=== PATIENT | female | born 1930 | race Caucasian/White ===

== ENCOUNTER 2017-02-06 03:55 | Inpatient (IN) | payer MEDICARE, OTHER ==
[2017-02-06] MEDS ORDERED: NORMAL SALINE 1000 ML 1,000 ML IV ONE (06:42)
[2017-02-06] MEDS ORDERED: PANTOPRAZOLE SODIUM 40 MG VIAL IV ONE (06:42)
--- NOTE | 2017-02-06 06:43 | ER Document Report ---
ED General - General Chief Complaint: Rectal Bleeding Stated Complaint: RECTAL BLEEDING Time Seen by Provider: 02/06/17 05:59 Mode of Arrival: Ambulatory Information source: Patient, Relative Notes: 86-year-old female DNR with no previous history of rectal bleeding presents with family with concerns of bleeding since yesterday, initially it was just a streak and then one clot, patient has started bleeding heavily since then. No history of hemorrhoids noted. TRAVEL OUTSIDE OF THE [place] IN LAST 30 DAYS: No - HPI Onset: Yesterday Onset/Duration: Persistent Quality of pain: No pain Severity: Moderate Pain Level: Denies Associated symptoms: None Exacerbated by: Denies Relieved by: Denies Similar symptoms previously: No Recently seen / treated by doctor: No - Related Data Allergies/Adverse Reactions: No Known Allergies Allergy (Unverified 08/09/11 12:34) Past Medical History - Social History Smoking Status: Never Smoker Cigarette use (# per day): No Chew tobacco use (# tins/day): No Smoking Education Provided: No Family History: Reviewed & Not Pertinent Patient has suicidal ideation: No Patient has homicidal ideation: No - Past Medical History Cardiac Medical History: Reports: Hx Hypercholesterolemia, Hx Hypertension Pulmonary Medical History: Denies: Hx Tuberculosis Neurological Medical History: Reports: Hx Cerebrovascular Accident - 3 YEARS AGO Endocrine Medical History: Reports: Hx Diabetes Mellitus Type 2 Renal/ Medical History: Denies: Hx Peritoneal Dialysis Musculoskeltal Medical History: Reports Hx Arthritis Psychiatric Medical History: Reports: Hx Depression - SINCE Past Surgical History: Denies: Hx Pacemaker - Immunizations Hx Diphtheria, Pertussis, Tetanus Vaccination: No Hx Pneumococcal Vaccination: 08/14/11 Review of Systems - Review of Systems Notes: REVIEW OF SYSTEMS: CONSTITUTIONAL : Denies fever, chills, or sweats. Denies recent illness. EENT: Denies eye, ear, throat, or mouth pain or symptoms. Denies nasal or sinus congestion or discharge. Denies throat, tongue, or mouth swelling or difficulty swallowing. CARDIOVASCULAR: Denies chest pain. Denies palpitations or racing or irregular heart beat. Denies ankle edema. RESPIRATORY: Denies cough, cold, or chest congestion. Denies shortness of breath, difficulty breathing, or wheezing. GASTROINTESTINAL: Admits to rectal bleeding GENITOURINARY: Denies difficulty urinating, painful urination, burning, frequency, blood in urine, or discharge. FEMALE GENITOURINARY: Denies vaginal bleeding, heavy or abnormal periods, irregular periods. Denies vaginal discharge or odor. MUSCULOSKELETAL: Denies back or neck pain or stiffness. Denies joint pain or swelling. SKIN: Denies rash, lesions or sores. HEMATOLOGIC : Denies easy bruising or bleeding. LYMPHATIC: Denies swollen, enlarged glands. NEUROLOGICAL: Denies confusion or altered mental status. Denies passing out or loss of consciousness. Denies dizziness or lightheadedness. Denies headache. Denies weakness or paralysis or loss of use of either side. Denies problems with gait or speech. Denies sensory loss, numbness, or tingling. Denies seizures. PSYCHIATRIC: Denies anxiety or stress. Denies depression, suicidal ideation, or homicidal ideation. ALL OTHER SYSTEMS REVIEWED AND NEGATIVE. PHYSICAL EXAMINATION: GENERAL: Well-appearing, well-nourished and in no acute distress. HEAD: Atraumatic, normocephalic. EYES: Pupils equal round and reactive to light, extraocular movements intact, conjunctiva are normal. ENT: Nares patent, oropharynx clear without exudates. Moist mucous membranes. NECK: Normal range of motion, supple without lymphadenopathy LUNGS: Breath sounds clear to auscultation bilaterally and equal. No wheezes rales or rhonchi. HEART: Regular rate and rhythm without murmurs ABDOMEN: Soft, nontender, nondistended abdomen. No guarding, no rebound. No masses appreciated. Large amount of dark blood clots per rectum Female : blood Was noted in the vaginal area however after cleaned extensively no active bleeding was noted Musculoskeletal: Normal range of motion, no pitting or edema. No cyanosis. NEUROLOGICAL: Cranial nerves grossly intact. Normal speech, normal gait. Normal sensory, motor exams PSYCH: Normal mood, normal affect. SKIN: Warm, Dry, normal turgor, no rashes or lesions noted. Dictation was performed using [employer] voice recognition software Physical Exam - Vital signs Vitals: Temp Pulse Resp BP Pulse Ox 98 F 73 18 168/94 H 96 02/06/17 04:24 02/06/17 04:24 02/06/17 04:24 02/06/17 04:24 02/06/17 04:24 Course - Re-evaluation Re-evalutation: 02/06/17 06:43 dark rectal bleeding noted, pt will be started on IV fluids protonix, pt is a DNR 02/06/17 08:45 I spoke with patient's primary care physician and will admit the patient to the hospital due to the rectal bleeding, - Vital Signs Vital signs: Temp Pulse Resp BP Pulse Ox 98 F 73 18 168/94 H 96 02/06/17 04:24 02/06/17 04:24 02/06/17 04:24 02/06/17 04:24 02/06/17 04:24 - Laboratory Result Diagrams: 02/06/17 06:35 02/06/17 06:35 Laboratory results interpreted by me: 02/06/17 02/06/17 06:35 06:35 Hgb 11.8 L MCHC 31.4 L RDW 16.0 H Lymphocytes % 11.3 L Eosinophils % 6.9 H Potassium 3.4 L BUN 27 H Est GFR (Non-Af Amer) 52 L Glucose 131 H Discharge - Discharge Clinical Impression: Rectal bleed Condition: Fair Disposition: ADMITTED INPATIENT Admitting Provider: Sonya Unit Admitted: JAMAR
[2017-02-06 06:45] LABS: ABSOLUTE BASOPHILS # (AUTO) 0.1 10^3/uL (0.0-0.2); ABSOLUTE EOSINOPHILS # (AUTO) 0.5 10^3/uL (0.0-0.6); ABSOLUTE LYMPHOCYTES (AUTO) 0.8 10^3/uL (0.5-4.7); ABSOLUTE MONOCYTES (AUTO) 0.7 10^3/uL (0.1-1.4); ABSOLUTE NEUT (AUTO) 5.3 10^3/uL (1.7-8.2); BASOPHILS % (AUTO) 0.8 % (0-2); EOSINOPHILS % (AUTO) 6.9 % (0-6); HEMATOCRIT 37.8 % (36.0-47.0); HEMOGLOBIN 11.8 g/dL (12.0-15.5); HGB HCT DIFFERENCE -2.4; LYMPHOCYTES % (AUTO) 11.3 % (13-45); MEAN CORPUSCULAR HEMOGLOBIN 27.2 pg (27.0-33.4); MEAN CORPUSCULAR HGB CONC 31.4 g/dL (32.0-36.0); MEAN CORPUSCULAR VOLUME 87 fl (80-97); MONOCYTES % (AUTO) 9.4 % (3-13); RED BLOOD COUNT 4.35 10^6/uL (3.72-5.28); SEGMENTED NEUTROPHILS % (AUTO) 71.6 % (42-78); WHITE BLOOD COUNT 7.4 10^3/uL (4.0-10.5)
[2017-02-06] MEDS ORDERED: PANTOPRAZOLE SODIUM 40 MG VIAL IV PRN ×2 (06:47→19:49)
[2017-02-06 06:56] LABS: ALANINE AMINOTRANSFERASE 27 U/L (9-52); ALBUMIN 3.6 g/dL (3.5-5.0); ALKALINE PHOSPHATASE 99 U/L (38-126); ANION GAP 10 (5-19); ASPARTATE AMINO TRANSFERASE 24 U/L (14-36); BILIRUBIN,DIRECT 0.3 mg/dL (0.0-0.4); BILIRUBIN,TOTAL 0.6 mg/dL (0.2-1.3); BLOOD UREA NITROGEN 27 mg/dL (7-20); CALCIUM 9.9 mg/dL (8.4-10.2); CARBON DIOXIDE 27 mmol/L (22-30); CHLORIDE 103 mmol/L (98-107); GLUCOSE 131 mg/dL (75-110); POTASSIUM 3.4 mmol/L (3.6-5.0); SODIUM 140.3 mmol/L (137-145); TOTAL PROTEIN 6.4 g/dL (6.3-8.2)
[2017-02-06] MEDS ORDERED: DEXTROSE 40% GEL 15 GM TUBE PO PRN ×2 (08:41)
[2017-02-06] MEDS ORDERED: GLUCAGON,HUMAN RECOMB 1 MG INJ SUBCUT PRN (08:41)
[2017-02-06] MEDS ORDERED: ONDANSETRON 4 MG TAB.RAPDIS PO PRN (08:41)
[2017-02-06] MEDS ORDERED: DEXTROSE 50%-WATER 25 GM/50 ML DISP.SYRIN IV PRN ×2 (08:41)
[2017-02-06 14:15] LABS: HEMATOCRIT 35.9 % (36.0-47.0); HEMOGLOBIN 11.4 g/dL (12.0-15.5); HGB HCT DIFFERENCE -1.7; MEAN CORPUSCULAR HEMOGLOBIN 27.1 pg (27.0-33.4); MEAN CORPUSCULAR HGB CONC 31.7 g/dL (32.0-36.0); MEAN CORPUSCULAR VOLUME 86 fl (80-97); RED BLOOD COUNT 4.19 10^6/uL (3.72-5.28); RED CELL DISTRIBUTION WIDTH 15.8 % (11.5-14.0); WHITE BLOOD COUNT 6.5 10^3/uL (4.0-10.5)
--- NOTE | 2017-02-06 14:17 | PDOC H&P ---
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 Past Medical History Cardiac Medical History: Reports: Atrial Fibrillation - coumadin till pontine hemorrhage, Hyperlipidema, Hypertension Pulmonary Medical History: Reports: None Denies: Tuberculosis EENT Medical History: Reports: Cataracts, Other - glaucoma Neurological Medical History: Reports: Hemorrhagic CVA, Other - multilinfarct dementia Endocrine Medical History: Reports: Diabetes Mellitus Type 2 Renal/ Medical History: Reports: Other - protein 300mgQd Malignancy Medical History: Reports: None Musculoskeltal Medical History: Reports: Arthritis, Other - osteoporosis Rhumeral fracture Skin Medical History: Reports: None Psychiatric Medical History: Reports: Dementia - multiinfarct, Depression - SINCE Traumatic Medical History: Reports: None Hematology: Reports: Anemia - iron & b12. Took iron [id number]. Infectious Medical History: Reports: None Past Surgical History Past Surgical History: Reports: Other - iridectomy Denies: Pacemaker Social History Information Source: Dr. Trivedi Lives with: Family Smoking Status: Never Smoker Frequency of Alcohol Use: None Hx Recreational Drug Use: No Hx Prescription Drug Abuse: No - Advance Directive Resuscitation Status: Do Not Resuscitate Family History Family History: Hypertension Parental Family History Reviewed: Yes Children Family History Reviewed: Yes Sibling(s) Family History Reviewed.: Yes Medication/Allergy Home Medications: Alendronate Sodium [Fosamax 70 mg Tablet] 1 tab PO Q7D 02/06/17 Aspirin [Aspirin 81 mg Chewable Tablet] 81 mg PO DAILY 02/06/17 Atorvastatin Calcium [Lipitor 20 mg Tablet] 20 mg PO QHS 02/06/17 Cyanocobalamin (Vitamin B-12) [Vitamin B-12 1000 Mcg Tablet] 1,000 mcg PO DAILY 02/06/17 Labetalol HCl [Trandate] 100 mg PO Q12 02/06/17 Latanoprost [Xalatan 0.005% Oph Soln 2.5 ml] 1 drop OU QHS 02/06/17 Pantoprazole Sodium [Protonix] 40 mg PO DAILY 02/06/17 Trazodone HCl [Desyrel] 150 mg PO QHS 02/06/17 Allergies/Adverse Reactions: No Known Allergies Allergy (Unverified 08/09/11 12:34) Review of Systems Constitutional: PRESENT: weight loss - 21# in 18m. ABSENT: fever(s), headache(s ) Nose, Mouth, and Throat: ABSENT: sore throat Cardiovascular: ABSENT: chest pain, dyspnea on exertion, orthropnea Respiratory: ABSENT: cough Gastrointestinal: PRESENT: constipation, hematochezia. ABSENT: abdominal pain, diarrhea, melena, vomiting Genitourinary: ABSENT: dysuria, hematuria Neurological: PRESENT: memory loss Physical Exam Vital Signs: Temp Pulse Resp BP Pulse Ox 98.4 F 66 18 194/73 H 100 02/06/17 11:58 02/06/17 11:58 02/06/17 11:58 02/06/17 11:58 02/06/17 10:49 Intake & Output 02/05/17 02/06/17 02/07/17 07:59 07:59 07:59 Output Total 4 Balance -4 Weight 100 lb 4.965 oz General appearance: PRESENT: no acute distress Mouth exam: PRESENT: moist Neck exam: ABSENT: lymphadenopathy, tenderness, thyromegaly, tracheal deviation Respiratory exam: PRESENT: clear to auscultation julisa Cardiovascular exam: PRESENT: irregular rhythm. ABSENT: diastolic murmur, systolic murmur GI/Abdominal exam: ABSENT: mass, organolmegaly, tenderness Neurological exam: PRESENT: oriented to situation Psychiatric exam: PRESENT: appropriate affect Skin exam: ABSENT: pallor Results Laboratory Results: 02/06/17 10:15 Blood Type O POSITIVE Antibody Screen NEGATIVE Abnormal - 24 hr 02/06/17 02/06/17 02/06/17 06:35 06:35 12:41 Hgb 11.8 L MCHC 31.4 L RDW 16.0 H Lymphocytes % 11.3 L Eosinophils % 6.9 H Potassium 3.4 L BUN 27 H Est GFR (Non-Af Amer) 52 L Glucose 131 H POC Glucose 115 H Assessment & Plan - Diagnosis (1) Rectal bleed Is this a current diagnosis for this admission?: YesPlan: follow cbc. Clear liquids. Consult surgery. Avoid colonoscopy if hct does not fall too much. - Time Time Spent: 30 to 50 Minutes Medications reviewed and adjusted accordingly: Yes Anticipated discharge: Home Within: Other - Inpatient Certification Medical Necessity: Need Close Monitoring Due to Risk of Patient Decompensation - could bleed to , Need For IV Fluids, Need For Continuous Telemetry Monitoring, Need for Surgery - possible, Risk of Complication if Not Cared For in Hospital - , Risk of Diagnosis Which Will Require Inpatient Eval/Care/ Monitoring - actively bleeding
[2017-02-06 20:35] LABS: HEMATOCRIT 33.7 % (36.0-47.0); HEMOGLOBIN 10.4 g/dL (12.0-15.5); HGB HCT DIFFERENCE -2.5; MEAN CORPUSCULAR HEMOGLOBIN 26.8 pg (27.0-33.4); MEAN CORPUSCULAR HGB CONC 30.7 g/dL (32.0-36.0); MEAN CORPUSCULAR VOLUME 87 fl (80-97); RED BLOOD COUNT 3.86 10^6/uL (3.72-5.28); WHITE BLOOD COUNT 7.1 10^3/uL (4.0-10.5)
--- NOTE | 2017-02-06 21:29 | CONSULTATION REPORT E ---
Consultation Report NAME: FAWAD SÁNCHEZ : 1930 AGE: 86Y DATE: 02/06/2017 333 A TO: SAMUEL GARCÍA M.D. FROM: JUDAH CASTLE M.D. Requesting Physician REASON FOR CONSULTATION: The patient with lower GI bleed. HISTORY: This is an 86-year-old female who was noted to have painless lower GI bleeding with clots early this morning. She was seen in the emergency room where hemoglobin was drawn and this was 11.8. Subsequent hemoglobin 6 hours later showed hemoglobin slightly decreased at 11.4. Her white count is normal and platelets is at 207,000. However, no coagulation studies were drawn yet and I told the nurse to get a set of coags at 12 midnight for her next CBC drawing. The patient has a history of pontine bleed in 2007, but then taken off the Coumadin. He has a history of atrial fibrillation and just takes baby aspirin once a day. PAST MEDICAL HISTORY: 1. Atrial fibrillation. 2. Hyperlipidemia. 3. Hypertension. 4. History of cataracts. REVIEW OF SYSTEMS: NEUROLOGIC EXAM: Hemorrhagic CVA and multiinfarct dementia. ENDOCRINE: Diabetes mellitus type 2. MALIGNANCY: None. MUSCULOSKELETAL: History of osteoporosis with right humeral fracture. SKIN: No issues. PSYCHIATRIC: History of multiinfarct dementia and depression since . HEMATOLOGY: Reports anemia and took iron and B12 from 2007 to 2016. SOCIAL HISTORY: Never smoked. No alcohol or drug use. FAMILY HISTORY: Noncontributory. HOME MEDICATIONS: 1. Fosamax. 2. Aspirin 81 mg. 3. Lipitor. 4. B12. 5. Trandate. 6. Xalatan. 7. Protonix. 8. Desyrel. ALLERGIES: No known. REVIEW OF SYSTEMS: CONSTITUTIONAL: A 21 pound weight loss in 18 months. HEENT: No sore throat. No visual or hearing problems. CARDIOVASCULAR: Absent chest pains. RESPIRATORY: No cough. GI: Constipation and hematochezia. GENITOURINARY: No dysuria. NEUROLOGIC: Memory loss. PHYSICAL EXAMINATION: VITAL SIGNS: Temperature 98.4, pulse 66, respirations 18 per minute, BP 194/73 and pulse oximetry 100%. GENERAL APPEARANCE: The patient is in no acute distress. HEENT: Neck is supple. No thyromegaly. LUNGS: Clear. HEART: Irregular rate and rhythm. GASTROINTESTINAL: No abdominal pains. No tenderness or organomegaly. NEUROLOGIC: Oriented to situation. PSYCHIATRIC: Appropriate affect. SKIN: Positive pallor. LABORATORY DATA: Hemoglobin 11.8, decreased to 11.4, white count has been normal. IMPRESSION: 1. Lower GI bleed, possibly due to diverticulosis since the patient has history of constipation. 2. History of CVA. 3. Atrial fibrillation. RECOMMENDATION: 1. Check coagulation and correct if abnormal. 2. Continue with resuscitation and if hemoglobin drops below 10, may need to be transfused. 3. If the bleeding becomes more significant with decrease in hemoglobin, a bleeding scan may be in order to see for the site of the bleeding. The patient apparently is a DNR so we have to talk with the family as far as how aggressive we should be. 4. will inform Dr Brown tomorrow for possible colonoscopy. DICTATING PHYSICIAN: SAMUEL GARCÍA M.D. [id number] PHY#: [id number] ID: [id number] JOB#: [id number] ACCT: [id number] cc:SAMUEL GARCÍA M.D. > MTDD
[2017-02-06 21:35] LABS: PROTHROMBIN TIME 13.6 SEC (11.4-15.4)
[2017-02-06 21:37] LABS: PARTIAL THROMBOPLASTIN TIME 60.9 SEC (23.5-35.8)
[2017-02-06] MEDS: LABETALOL HCL 200 MG TABLET PO SCH (21:43)
[2017-02-06] MEDS: TRAZODONE HCL 50 MG TABLET PO SCH (21:45)
[2017-02-06] MEDS: LATANOPROST 0.005% OPH SOLN 2.5 ML OU SCH (21:46)
[2017-02-06] MEDS: ATORVASTATIN CALCIUM 20 MG TABLET PO SCH (21:46)
[2017-02-06] MEDS ORDERED: (PENDING PHARMACY ID) (Trazodone Hcl [Desyrel] 150 MG) PO SCH (22:00)
[2017-02-07] MEDS ORDERED: ENALAPRILAT DIHYDRATE INJ/PF 1.25 MG/1 ML SDV IV PRN (00:17)
[2017-02-07] MEDS: ENALAPRILAT DIHYDRATE INJ/PF 1.25 MG/1 ML SDV IV PRN ×4 (00:33→17:55)
[2017-02-07 00:41] LABS: HEMATOCRIT 32.6 % (36.0-47.0); HEMOGLOBIN 10.3 g/dL (12.0-15.5); HGB HCT DIFFERENCE -1.7; MEAN CORPUSCULAR HEMOGLOBIN 27.3 pg (27.0-33.4); MEAN CORPUSCULAR HGB CONC 31.6 g/dL (32.0-36.0); MEAN CORPUSCULAR VOLUME 86 fl (80-97); RED BLOOD COUNT 3.78 10^6/uL (3.72-5.28); RED CELL DISTRIBUTION WIDTH 15.8 % (11.5-14.0)
[2017-02-07 00:58] LABS: PROTHROMBIN TIME 13.5 SEC (11.4-15.4)
[2017-02-07 00:59] LABS: PARTIAL THROMBOPLASTIN TIME 49.5 SEC (23.5-35.8)
[2017-02-07 06:31] LABS: HEMATOCRIT 29.2 % (36.0-47.0); HEMOGLOBIN 9.4 g/dL (12.0-15.5); MEAN CORPUSCULAR HEMOGLOBIN 27.4 pg (27.0-33.4); MEAN CORPUSCULAR HGB CONC 32.2 g/dL (32.0-36.0); MEAN CORPUSCULAR VOLUME 85 fl (80-97); RED BLOOD COUNT 3.43 10^6/uL (3.72-5.28); RED CELL DISTRIBUTION WIDTH 15.5 % (11.5-14.0); WHITE BLOOD COUNT 8.3 10^3/uL (4.0-10.5)
--- NOTE | 2017-02-07 09:52 | PDOC PROGRESS REPORT ---
Subjective Progress Note for:: 02/07/17 Subjective:: Patient had less bleeding overnight and no bloody bowel movements this morning Physical Exam Vital Signs: Temp Pulse Resp BP Pulse Ox 98.0 F 78 18 192/90 H 100 02/07/17 08:06 02/07/17 08:06 02/07/17 08:06 02/07/17 08:06 02/07/17 08:06 Intake & Output 02/06/17 02/07/17 02/08/17 06:59 06:59 06:59 Intake Total 695 Output Total 4 Balance 691 Weight 45.2 kg General appearance: PRESENT: no acute distress, other - Somewhat crumpled in her bed, unable to move her right arm right shoulder due to subacute fracture GI/Abdominal exam: PRESENT: other - No guarding, no peritoneal signs no organomegaly. Results Laboratory Results: 02/07/17 06:06 02/06/17 02/06/17 02/06/17 10:15 14:09 20:19 WBC 6.5 7.1 RBC 4.19 3.86 Hgb 11.4 L 10.4 L Hct 35.9 L 33.7 L MCV 86 87 MCH 27.1 26.8 L MCHC 31.7 L 30.7 L RDW 15.8 H 16.0 H Plt Count 207 206 Blood Type O POSITIVE Antibody Screen NEGATIVE 02/07/17 02/07/17 00:31 06:06 WBC 11.0 H 8.3 RBC 3.78 3.43 L Hgb 10.3 L 9.4 L Hct 32.6 L 29.2 L MCV 86 85 MCH 27.3 27.4 MCHC 31.6 L 32.2 RDW 15.8 H 15.5 H Plt Count 189 191 Blood Type Antibody Screen Assessment & Plan - Diagnosis (1) Rectal bleed Is this a current diagnosis for this admission?: YesPlan: Acute, with associated drop in hemoglobin however the patient has been fluid resuscitated. I spent a long time talking to the patient and her daughters. Patient has never had a colonoscopy that they are aware of. She knows of no history of gastrointestinal bleeding, peptic ulcer disease, etc. I explained to them that the most common cause of a GI bleed of this sort is diverticular or possibly AVM, but certainly without a colonoscopy, diagnosis cannot be confirmed. Given the patient's frail status, advanced age, multiple comorbidities, and DNR status, I recommended a conservative, [id number] approach, which the patient and her family are comfortable with at this moment. If the patient believes, then decisions will need to be made about appropriateness of transfusion therapy and further intervention. - Time Time Spent with patient: 15-24 minutes
[2017-02-07] MEDS: CYANOCOBALAMIN (VITAMIN B-12) 1,000 MCG TABLET PO SCH (10:04)
[2017-02-07] MEDS: LABETALOL HCL 200 MG TABLET PO SCH ×2 (10:05→22:45)
--- NOTE | 2017-02-07 10:23 | EKG REPORT ---
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
[2017-02-07 12:41] LABS: HEMATOCRIT 26.6 % (36.0-47.0); HEMOGLOBIN 8.4 g/dL (12.0-15.5); HGB HCT DIFFERENCE -1.4; MEAN CORPUSCULAR HEMOGLOBIN 27.1 pg (27.0-33.4); MEAN CORPUSCULAR HGB CONC 31.6 g/dL (32.0-36.0); MEAN CORPUSCULAR VOLUME 86 fl (80-97); RED CELL DISTRIBUTION WIDTH 15.4 % (11.5-14.0); WHITE BLOOD COUNT 6.6 10^3/uL (4.0-10.5)
--- NOTE | 2017-02-07 14:58 | PDOC PROGRESS REPORT ---
Subjective Progress Note for:: 02/07/17 Subjective:: reason for visit: f/u anemia, GIB hospital course: per Dr Hassan - "Patient complains of: since 2am new bright red then maroon painless rectal bleeding with clots. 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 Her H/H have slowly trended down, no susana bloody stools reported to me by staff or family since her admission. she remains hemodynamically stable and very pleasantly demented to the extreme. ROS: unobtainable from the patient due to profound dementia Physical Exam Vital Signs: Temp Pulse Resp BP Pulse Ox 98.0 F 75 18 170/80 H 100 02/07/17 12:36 02/07/17 12:36 02/07/17 12:36 02/07/17 12:36 02/07/17 12:36 Intake & Output 02/06/17 02/07/17 02/08/17 06:59 06:59 06:59 Intake Total 695 Output Total 4 Balance 691 Weight 45.2 kg General appearance: PRESENT: no acute distress, thin, well-developed Head exam: PRESENT: atraumatic, normocephalic Eye exam: ABSENT: conjunctival injection, scleral icterus Mouth exam: PRESENT: moist, neck supple Respiratory exam: PRESENT: clear to auscultation julisa. ABSENT: accessory muscle use Cardiovascular exam: PRESENT: irregular rhythm. ABSENT: systolic murmur, tachycardia Pulses: PRESENT: normal radial pulses, normal dorsalis pedis pul Vascular exam: ABSENT: normal capillary refill - diminished GI/Abdominal exam: PRESENT: normal bowel sounds, soft. ABSENT: tenderness Rectal exam: PRESENT: deferred Extremities exam: ABSENT: calf tenderness, pedal edema Neurological exam: PRESENT: alert, awake, oriented to person - only, motor sensory deficit - Right hemiplegia Psychiatric exam: PRESENT: appropriate affect, normal mood. ABSENT: agitated, anxious Focused psych exam: ABSENT: paranoid, psychomotor agitation Skin exam: PRESENT: dry, warm Results Laboratory Results: 02/07/17 12:07 02/06/17 02/07/17 02/07/17 20:19 00:31 06:06 WBC 7.1 11.0 H 8.3 RBC 3.86 3.78 3.43 L Hgb 10.4 L 10.3 L 9.4 L Hct 33.7 L 32.6 L 29.2 L MCV 87 86 85 MCH 26.8 L 27.3 27.4 MCHC 30.7 L 31.6 L 32.2 RDW 16.0 H 15.8 H 15.5 H Plt Count 206 189 191 02/07/17 12:07 WBC 6.6 RBC 3.10 L Hgb 8.4 L Hct 26.6 L MCV 86 MCH 27.1 MCHC 31.6 L RDW 15.4 H Plt Count 200 Assessment & Plan - Diagnosis (1) Rectal bleed Is this a current diagnosis for this admission?: YesPlan: worse, still losing blood but at slower pace and not hemodynamically significant at this time. continue expectant management (2) Acute blood loss anemia Is this a current diagnosis for this admission?: YesPlan: worse with continued slow blood loss not affecting her hemodynamics; likely diverticular or hemorrhoidal bleed. continue expectant management, hold antiplt or anticoagulation, trend H/H. dr brown available for endoscopy if condition rapidly deteriorates. family ( daughter) agreeable. (3) Dementia Qualifiers: Dementia type: unspecified type Dementia behavioral disturbance: without behavioral disturbance Qualified Code(s): F03.90 - Unspecified dementia without behavioral disturbance Is this a current diagnosis for this admission?: YesPlan: stable; continue home regimen, family or their EDUCATIONAL RESOURCE COORDINATOR available (4) ICH (intracerebral hemorrhage) Qualifiers: Intracerebral hemorrhage etiology: nontraumatic Cerebral hemorrhage location: unspecified cerebral location Laterality: unspecified laterality Qualified Code(s): I61.9 - Nontraumatic intracerebral hemorrhage, unspecified Is this a current diagnosis for this admission?: YesPlan: old and stable; no anticoagulation for life (5) Afib Qualifiers: Atrial fibrillation type: chronic Qualified Code(s): I48.2 - Chronic atrial fibrillation Is this a current diagnosis for this admission?: YesPlan: worse, rate poorly controlled this morning. resume beta juliet and monitor (6) Accelerated essential hypertension Is this a current diagnosis for this admission?: YesPlan: worse; resume home regimen (7) Do not resuscitate Is this a current diagnosis for this admission?: Yes - Time Time Spent with patient: 25-34 minutes Medications reviewed and adjusted accordingly: Yes
[2017-02-07 18:23] LABS: HEMATOCRIT 24.3 % (36.0-47.0); HGB HCT DIFFERENCE -1.2; MEAN CORPUSCULAR HEMOGLOBIN 27.2 pg (27.0-33.4); MEAN CORPUSCULAR HGB CONC 31.5 g/dL (32.0-36.0); MEAN CORPUSCULAR VOLUME 87 fl (80-97); RED BLOOD COUNT 2.81 10^6/uL (3.72-5.28); RED CELL DISTRIBUTION WIDTH 15.5 % (11.5-14.0)
[2017-02-07 18:32] LABS: HEMOGLOBIN 7.7 g/dL (12.0-15.5)
[2017-02-07] MEDS ORDERED: NORMAL SALINE 250 ML IV PRN ×2 (18:54)
[2017-02-07] MEDS: NORMAL SALINE 1000 ML 1,000 ML IV PRN (22:43)
[2017-02-07] MEDS: LATANOPROST 0.005% OPH SOLN 2.5 ML OU SCH (22:45)
[2017-02-07] MEDS: ATORVASTATIN CALCIUM 20 MG TABLET PO SCH (22:45)
[2017-02-07] MEDS: TRAZODONE HCL 50 MG TABLET PO SCH (22:45)
[2017-02-08 00:39] LABS: HEMATOCRIT 25.9 % (36.0-47.0); HEMOGLOBIN 8.3 g/dL (12.0-15.5); MEAN CORPUSCULAR HEMOGLOBIN 27.4 pg (27.0-33.4); MEAN CORPUSCULAR HGB CONC 31.9 g/dL (32.0-36.0); MEAN CORPUSCULAR VOLUME 86 fl (80-97); RED BLOOD COUNT 3.02 10^6/uL (3.72-5.28); RED CELL DISTRIBUTION WIDTH 15.6 % (11.5-14.0); WHITE BLOOD COUNT 6.4 10^3/uL (4.0-10.5)
[2017-02-08] MEDS: ENALAPRILAT DIHYDRATE INJ/PF 1.25 MG/1 ML SDV IV PRN ×4 (01:32→17:27)
[2017-02-08 09:14] LABS: MEAN CORPUSCULAR VOLUME 86 fl (80-97)
[2017-02-08 09:18] LABS: ABSOLUTE BASOPHILS # (AUTO) 0.1 10^3/uL (0.0-0.2); ABSOLUTE EOSINOPHILS # (AUTO) 0.7 10^3/uL (0.0-0.6); ABSOLUTE LYMPHOCYTES (AUTO) 1.1 10^3/uL (0.5-4.7); ABSOLUTE MONOCYTES (AUTO) 0.6 10^3/uL (0.1-1.4); ABSOLUTE NEUT (AUTO) 4.1 10^3/uL (1.7-8.2); BASOPHILS % (AUTO) 0.9 % (0-2); EOSINOPHILS % (AUTO) 10.3 % (0-6); HEMOGLOBIN 11.1 g/dL (12.0-15.5); HGB HCT DIFFERENCE -1.7; LYMPHOCYTES % (AUTO) 16.9 % (13-45); MEAN CORPUSCULAR HEMOGLOBIN 27.1 pg (27.0-33.4); MEAN CORPUSCULAR HGB CONC 31.7 g/dL (32.0-36.0); MONOCYTES % (AUTO) 9.7 % (3-13); RED BLOOD COUNT 4.09 10^6/uL (3.72-5.28); RED CELL DISTRIBUTION WIDTH 17.2 % (11.5-14.0); SEGMENTED NEUTROPHILS % (AUTO) 62.2 % (42-78); WHITE BLOOD COUNT 6.7 10^3/uL (4.0-10.5)
[2017-02-08] MEDS: LABETALOL HCL 200 MG TABLET PO SCH ×2 (09:49→23:02)
[2017-02-08] MEDS: CYANOCOBALAMIN (VITAMIN B-12) 1,000 MCG TABLET PO SCH (09:50)
[2017-02-08] MEDS: NORMAL SALINE 100 ML with PANTOPRAZOLE SODIUM 80 MG IV PRN ×4 (09:50→21:52)
--- NOTE | 2017-02-08 15:56 | PDOC PROGRESS REPORT ---
Subjective Progress Note for:: 02/08/17 Subjective:: The patient is an 86-year-old female who presented to the emergency room with bright red blood per rectum with clots. She has known worsening dementia at baseline. She has a history of an acute hemorrhagic CVA in 2007. She was admitted to the hospital and has been followed by general surgery who is elected to pursue a conservative approach. Her H&H has trended downward but she has had no susana bloody stools since the time of admission. She has remained hemodynamically stable. Yesterday she received 2 units of packed red blood cells with the appropriate response to her hemoglobin. Today when I saw her she had a caregiver at the bedside. At this point she appears to be at her cognitive baseline. The patient's daughter is not present at the bedside however the caregiver states that she understands the state of her worsening dementia and would like to talk to me later on in the day. Review of systems could not be obtained from the patient herself due to her underlying dementia. Physical Exam Vital Signs: Temp Pulse Resp BP Pulse Ox 98.4 F 76 20 147/79 H 82 L 02/08/17 12:59 02/08/17 14:00 02/08/17 12:59 02/08/17 12:59 02/08/17 12:59 Intake & Output 02/07/17 02/08/17 02/09/17 06:59 06:59 06:59 Intake Total 695 2363 200 Output Total 4 Balance 691 2363 200 Weight 45.2 kg 47.8 kg General appearance: PRESENT: no acute distress, cooperative Exam: She is somewhat cachectic. She is alert and interactive but not oriented. Head exam: PRESENT: atraumatic, normocephalic Mouth exam: PRESENT: moist Respiratory exam: PRESENT: clear to auscultation julisa, rhonchi - She has some scattered rhonchi bilaterally. Otherwise her lungs sound fairly clear Cardiovascular exam: PRESENT: irregular rhythm. ABSENT: diastolic murmur, gallop, rubs, systolic murmur GI/Abdominal exam: PRESENT: normal bowel sounds, soft. ABSENT: tenderness Extremities exam: ABSENT: calf tenderness, tenderness Neurological exam: PRESENT: alert, awake. ABSENT: oriented to person, oriented to place, oriented to time, oriented to situation Psychiatric exam: PRESENT: appropriate affect Skin exam: PRESENT: dry, warm Results Laboratory Results: 02/08/17 08:22 02/06/17 02/07/17 02/08/17 10:15 17:55 00:29 WBC 6.0 6.4 RBC 2.81 L 3.02 L Hgb 7.7 L 8.3 L Hct 24.3 L 25.9 L MCV 87 86 MCH 27.2 27.4 MCHC 31.5 L 31.9 L RDW 15.5 H 15.6 H Plt Count 161 176 Seg Neutrophils % Lymphocytes % Monocytes % Eosinophils % Basophils % Absolute Neutrophils Absolute Lymphocytes Absolute Monocytes Absolute Eosinophils Absolute Basophils Blood Type O POSITIVE Antibody Screen NEGATIVE 02/08/17 08:22 WBC 6.7 RBC 4.09 Hgb 11.1 L D Hct 35.0 L MCV 86 MCH 27.1 MCHC 31.7 L RDW 17.2 H Plt Count 169 Seg Neutrophils % 62.2 Lymphocytes % 16.9 Monocytes % 9.7 Eosinophils % 10.3 H Basophils % 0.9 Absolute Neutrophils 4.1 Absolute Lymphocytes 1.1 Absolute Monocytes 0.6 Absolute Eosinophils 0.7 H Absolute Basophils 0.1 Blood Type Antibody Screen Assessment & Plan - Diagnosis (1) Acute blood loss anemia Is this a current diagnosis for this admission?: YesPlan: She likely has slow GI losses due to either hemorrhoids or diverticular bleed. At this point no aggressive workup. She has been transfused 2 units of packed red blood cells with the appropriate response to her hemoglobin. She also likely has anemia of chronic disease. (2) Accelerated essential hypertension Is this a current diagnosis for this admission?: YesPlan: Improved (3) Afib Qualifiers: Atrial fibrillation type: chronic Qualified Code(s): I48.2 - Chronic atrial fibrillation Is this a current diagnosis for this admission?: YesPlan: Currently rate controlled. Continue current regimen (4) Dementia Qualifiers: Dementia type: unspecified type Dementia behavioral disturbance: without behavioral disturbance Qualified Code(s): F03.90 - Unspecified dementia without behavioral disturbance Is this a current diagnosis for this admission?: YesPlan: The patient has fairly advanced dementia at baseline. I plan to talk to the daughter regarding goals of care prior to her leaving the hospital. (5) ICH (intracerebral hemorrhage) Qualifiers: Intracerebral hemorrhage etiology: nontraumatic Cerebral hemorrhage location: unspecified cerebral location Laterality: unspecified laterality Qualified Code(s): I61.9 - Nontraumatic intracerebral hemorrhage, unspecified Is this a current diagnosis for this admission?: YesPlan: History of bleed in the past. She is not a candidate for any sort of anticoagulation or aspirin therapy. (6) Rectal bleed Is this a current diagnosis for this admission?: Yes - Time Time Spent with patient: 15-24 minutes
[2017-02-08] MEDS: NORMAL SALINE 1000 ML 1,000 ML IV PRN (18:29)
[2017-02-08] MEDS: TRAZODONE HCL 50 MG TABLET PO SCH (23:01)
[2017-02-08] MEDS: ATORVASTATIN CALCIUM 20 MG TABLET PO SCH (23:02)
[2017-02-08] MEDS: LATANOPROST 0.005% OPH SOLN 2.5 ML OU SCH (23:05)
[2017-02-09] MEDS: ENALAPRILAT DIHYDRATE INJ/PF 1.25 MG/1 ML SDV IV PRN ×4 (00:31→17:58)
[2017-02-09 06:09] LABS: ANION GAP 11 (5-19); BLOOD UREA NITROGEN 22 mg/dL (7-20); CALCIUM 8.6 mg/dL (8.4-10.2); CARBON DIOXIDE 26 mmol/L (22-30); CHLORIDE 110 mmol/L (98-107); CREATININE RESULT 0.76 mg/dL (0.52-1.25); GLUCOSE 112 mg/dL (75-110); MAGNESIUM 1.4 mg/dL (1.6-2.3); SODIUM 146.9 mmol/L (137-145)
[2017-02-09] MEDS: NORMAL SALINE 1000 ML 1,000 ML IV PRN (06:13)
[2017-02-09] MEDS ORDERED: HYDRALAZINE HCL INJ/PF 20 MG/1 ML SDV IV PRN (07:44)
[2017-02-09] MEDS: LABETALOL HCL 200 MG TABLET PO SCH ×2 (09:57→21:03)
[2017-02-09] MEDS: NORMAL SALINE 100 ML with PANTOPRAZOLE SODIUM 80 MG IV PRN ×4 (09:57→21:04)
[2017-02-09] MEDS: CYANOCOBALAMIN (VITAMIN B-12) 1,000 MCG TABLET PO SCH (09:58)
[2017-02-09] MEDS: HYDRALAZINE HCL 25 MG TABLET PO SCH ×2 (14:53→21:04)
--- NOTE | 2017-02-09 15:26 | PDOC PROGRESS REPORT ---
Subjective Progress Note for:: 02/09/17 Subjective:: It was reported by the nursing staff that the patient had some mild bleeding overnight. This was more just when she had a bowel movement and they wiped her there was some blood noted on tissue paper. Patient's daughter was at the bedside. I spent quite some time discussing goals of care with her all of her questions were answered. This point were going to keep her in the hospital for 1 additional day to make sure her hemoglobin stays stable. We are going to advance her to a regular low residue diet. We will can get physical therapy to see her today with tentative discharge planned for tomorrow. She does have excellent [id number] care at home. Review of systems could not be obtained from the patient herself due to her underlying advanced dementia. Physical Exam Vital Signs: Temp Pulse Resp BP Pulse Ox 97.5 F 52 L 18 141/57 H 99 02/09/17 11:48 02/09/17 11:48 02/09/17 11:48 02/09/17 08:24 02/09/17 11:48 Intake & Output 02/08/17 02/09/17 02/10/17 06:59 06:59 06:59 Intake Total 2363 3001 354 Balance 2363 3001 354 Weight 47.8 kg 47.6 kg General appearance: PRESENT: no acute distress, cooperative, thin Head exam: PRESENT: atraumatic, normocephalic Mouth exam: PRESENT: moist Respiratory exam: PRESENT: clear to auscultation julisa. ABSENT: accessory muscle use, chest wall tenderness, rales, rhonchi, wheezes Cardiovascular exam: PRESENT: irregular rhythm, +S1, +S2. ABSENT: tachycardia GI/Abdominal exam: PRESENT: normal bowel sounds, soft. ABSENT: tenderness Extremities exam: ABSENT: calf tenderness, clubbing, pedal edema Neurological exam: PRESENT: alert, awake. ABSENT: oriented to person, oriented to place, oriented to time, oriented to situation Psychiatric exam: PRESENT: appropriate affect Skin exam: PRESENT: dry, warm Results Laboratory Results: 02/08/17 08:22 02/09/17 05:32 02/09/17 05:32 Sodium 146.9 H Potassium 3.0 L* Chloride 110 H Carbon Dioxide 26 Anion Gap 11 BUN 22 H Creatinine 0.76 Est GFR ( Amer) > 60 Est GFR (Non-Af Amer) > 60 Glucose 112 H Calcium 8.6 Magnesium 1.4 L Assessment & Plan - Diagnosis (1) Acute blood loss anemia Is this a current diagnosis for this admission?: YesPlan: At this point I plan to check a CBC in the morning. Hopefully her hemoglobin will not it drifted down to 4. If it is stable tomorrow she will likely be discharged home. (2) Accelerated essential hypertension Is this a current diagnosis for this admission?: YesPlan: Resolved. Her blood pressure is improved. (3) Afib Qualifiers: Atrial fibrillation type: chronic Qualified Code(s): I48.2 - Chronic atrial fibrillation Is this a current diagnosis for this admission?: YesPlan: Currently rate controlled. She is not a candidate for anticoagulation. She has a history of hemorrhagic CVA as well as rectal bleeding. (4) Dementia Qualifiers: Dementia type: unspecified type Dementia behavioral disturbance: without behavioral disturbance Qualified Code(s): F03.90 - Unspecified dementia without behavioral disturbance Is this a current diagnosis for this admission?: YesPlan: The patient has fairly advanced dementia at baseline. However according to the daughter she is her usual self. They are taking excellent care of her at home and have [id number]-[id number] help. We did discuss the natural course of dementia and all of her questions were answered. (5) ICH (intracerebral hemorrhage) Qualifiers: Intracerebral hemorrhage etiology: nontraumatic Cerebral hemorrhage location: unspecified cerebral location Laterality: unspecified laterality Qualified Code(s): I61.9 - Nontraumatic intracerebral hemorrhage, unspecified Is this a current diagnosis for this admission?: YesPlan: History of bleed in the past. She is not a candidate for any sort of anticoagulation or aspirin therapy. (6) Rectal bleed Is this a current diagnosis for this admission?: Yes - Time Time Spent with patient: 25-34 minutes Medications reviewed and adjusted accordingly: Yes Anticipated discharge: Home Disposition: Inpatient hospitalization remains necessary. I would like to check her hemoglobin tomorrow morning. If this is stable she can likely be discharged home.
[2017-02-09] MEDS: TRAZODONE HCL 50 MG TABLET PO SCH (21:03)
[2017-02-09] MEDS: ATORVASTATIN CALCIUM 20 MG TABLET PO SCH (21:03)
[2017-02-09] MEDS: LATANOPROST 0.005% OPH SOLN 2.5 ML OU SCH (21:04)
[2017-02-09] MEDS: POTASSIUM CHLORIDE 20 MEQ/15 ML UDCUP PO SCH (21:04)
[2017-02-10] MEDS: NORMAL SALINE 1000 ML 1,000 ML IV PRN ×2 (00:38→11:11)
[2017-02-10] MEDS: ENALAPRILAT DIHYDRATE INJ/PF 1.25 MG/1 ML SDV IV PRN ×4 (01:43→17:17)
[2017-02-10] MEDS: HYDRALAZINE HCL 25 MG TABLET PO SCH ×3 (05:02→22:01)
[2017-02-10 06:20] LABS: ABSOLUTE BASOPHILS # (AUTO) 0.1 10^3/uL (0.0-0.2); ABSOLUTE EOSINOPHILS # (AUTO) 0.7 10^3/uL (0.0-0.6); ABSOLUTE MONOCYTES (AUTO) 0.9 10^3/uL (0.1-1.4); ABSOLUTE NEUT (AUTO) 5.3 10^3/uL (1.7-8.2); BASOPHILS % (AUTO) 0.8 % (0-2); EOSINOPHILS % (AUTO) 8.8 % (0-6); LYMPHOCYTES % (AUTO) 12.2 % (13-45); MEAN CORPUSCULAR HEMOGLOBIN 27.2 pg (27.0-33.4); MEAN CORPUSCULAR HGB CONC 31.5 g/dL (32.0-36.0); MEAN CORPUSCULAR VOLUME 86 fl (80-97); MONOCYTES % (AUTO) 11.2 % (3-13); RED BLOOD COUNT 4.05 10^6/uL (3.72-5.28); RED CELL DISTRIBUTION WIDTH 17.3 % (11.5-14.0)
[2017-02-10 06:29] LABS: ANION GAP 11 (5-19); BLOOD UREA NITROGEN 17 mg/dL (7-20); CALCIUM 7.9 mg/dL (8.4-10.2); CARBON DIOXIDE 22 mmol/L (22-30); CHLORIDE 113 mmol/L (98-107); CREATININE RESULT 0.71 mg/dL (0.52-1.25); GLUCOSE 92 mg/dL (75-110); MAGNESIUM 1.3 mg/dL (1.6-2.3); POTASSIUM 3.2 mmol/L (3.6-5.0); SODIUM 145.7 mmol/L (137-145)
[2017-02-10] MEDS: NORMAL SALINE 100 ML with PANTOPRAZOLE SODIUM 80 MG IV PRN ×2 (07:52)
[2017-02-10] MEDS: LABETALOL HCL 200 MG TABLET PO SCH ×2 (09:52→22:01)
[2017-02-10] MEDS: POTASSIUM CHLORIDE 20 MEQ/15 ML UDCUP PO SCH (09:52)
[2017-02-10] MEDS: CYANOCOBALAMIN (VITAMIN B-12) 1,000 MCG TABLET PO SCH (09:52)
--- NOTE | 2017-02-10 12:42 | PDOC PROGRESS REPORT ---
Subjective Progress Note for:: 02/10/17 Subjective:: The patient is resting in her bed. She is awake alert and pleasantly confused. Her review of systems could not be obtained. The nursing staff reported that the patient had a bowel movement that had about 20 cc of bright red blood in it. I discussed this with the patient's daughter at the bedside. We are going to monitor here in the hospital overnight. We are going to stop her IV fluids and IV Protonix. Will see if she can maintain her hydration. They are in agreement with this plan. We are tentatively planning discharge for tomorrow if her hemoglobin remained stable. Physical Exam Vital Signs: Temp Pulse Resp BP Pulse Ox 98.0 F 78 19 116/90 H 100 02/10/17 11:23 02/10/17 11:23 02/10/17 11:23 02/10/17 11:23 02/10/17 11:23 Intake & Output 02/09/17 02/10/17 02/11/17 06:59 06:59 06:59 Intake Total 3001 3194 50 Balance 3001 3194 50 Weight 47.6 kg 47 kg General appearance: PRESENT: no acute distress, thin Head exam: PRESENT: atraumatic, normocephalic Mouth exam: PRESENT: moist, tongue midline Respiratory exam: PRESENT: clear to auscultation julisa. ABSENT: rales, rhonchi, wheezes Cardiovascular exam: PRESENT: irregular rhythm. ABSENT: diastolic murmur, rubs , systolic murmur GI/Abdominal exam: PRESENT: normal bowel sounds, soft. ABSENT: distended, guarding, mass, organolmegaly, rebound, tenderness Rectal exam: PRESENT: bloody stool - Noted by nursing staff Extremities exam: PRESENT: full ROM. ABSENT: calf tenderness, clubbing, pedal edema Neurological exam: PRESENT: alert - we are on the same page, awake, motor sensory deficit Psychiatric exam: PRESENT: appropriate affect Skin exam: PRESENT: dry, intact, warm. ABSENT: cyanosis, rash Results Laboratory Results: 02/10/17 05:41 02/10/17 05:41 02/10/17 02/10/17 05:41 05:41 WBC 8.0 RBC 4.05 Hgb 11.0 L Hct 35.0 L MCV 86 MCH 27.2 MCHC 31.5 L RDW 17.3 H Plt Count 156 Seg Neutrophils % 67.0 Lymphocytes % 12.2 L Monocytes % 11.2 Eosinophils % 8.8 H Basophils % 0.8 Absolute Neutrophils 5.3 Absolute Lymphocytes 1.0 Absolute Monocytes 0.9 Absolute Eosinophils 0.7 H Absolute Basophils 0.1 Sodium 145.7 H Potassium 3.2 L Chloride 113 H Carbon Dioxide 22 Anion Gap 11 BUN 17 Creatinine 0.71 Est GFR ( Amer) > 60 Est GFR (Non-Af Amer) > 60 Glucose 92 Calcium 7.9 L Magnesium 1.3 L Assessment & Plan - Diagnosis (1) Acute blood loss anemia Is this a current diagnosis for this admission?: YesPlan: So far her hemoglobin is stable. She has received 2 units of packed red blood cells. This is likely due to a diverticular bleed. However family is deferred GI workup at this point. She could also have some internal hemorrhoids. (2) Accelerated essential hypertension Is this a current diagnosis for this admission?: YesPlan: Resolved. Her blood pressure is improved. (3) Afib Qualifiers: Atrial fibrillation type: chronic Qualified Code(s): I48.2 - Chronic atrial fibrillation Is this a current diagnosis for this admission?: YesPlan: Currently rate controlled. She is not a candidate for anticoagulation. She has a history of hemorrhagic CVA as well as rectal bleeding. (4) Dementia Qualifiers: Dementia type: unspecified type Dementia behavioral disturbance: without behavioral disturbance Qualified Code(s): F03.90 - Unspecified dementia without behavioral disturbance Is this a current diagnosis for this admission?: YesPlan: The patient has fairly advanced dementia at baseline. However according to the daughter she is her usual self. (5) ICH (intracerebral hemorrhage) Qualifiers: Intracerebral hemorrhage etiology: nontraumatic Cerebral hemorrhage location: unspecified cerebral location Laterality: unspecified laterality Qualified Code(s): I61.9 - Nontraumatic intracerebral hemorrhage, unspecified Is this a current diagnosis for this admission?: Yes (6) Rectal bleed Is this a current diagnosis for this admission?: YesPlan: Likely diverticular bleed although I cannot rule out internal hemorrhoids. The daughter has decided not to pursue workup. Unfortunately she continues to have some bleeding. We will monitor her overnight - Time Time Spent with patient: 25-34 minutes Disposition: Going to watch the patient in the hospital overnight to make sure her hemoglobin stays stable. We are going to get rid of her parenteral therapy and make sure she can maintain her hydration. Hopefully she can be discharged home tomorrow.
[2017-02-10] MEDS ORDERED: POTASSIUM CHLORIDE 10 MEQ TABLET.SA PO ONE (13:15)
[2017-02-10] MEDS: TRAZODONE HCL 50 MG TABLET PO SCH (22:01)
[2017-02-10] MEDS: ATORVASTATIN CALCIUM 20 MG TABLET PO SCH (22:01)
[2017-02-10] MEDS: LATANOPROST 0.005% OPH SOLN 2.5 ML OU SCH (22:01)
[2017-02-11] MEDS: ENALAPRILAT DIHYDRATE INJ/PF 1.25 MG/1 ML SDV IV PRN ×4 (00:01→18:32)
[2017-02-11] MEDS: HYDRALAZINE HCL 25 MG TABLET PO SCH ×3 (05:29→21:17)
[2017-02-11] MEDS: LANSOPRAZOLE 30 MG TAB.RAP.DR PO SCH (05:29)
[2017-02-11 08:16] LABS: ABSOLUTE BASOPHILS # (AUTO) 0.1 10^3/uL (0.0-0.2); ABSOLUTE EOSINOPHILS # (AUTO) 0.2 10^3/uL (0.0-0.6); ABSOLUTE LYMPHOCYTES (AUTO) 0.9 10^3/uL (0.5-4.7); ABSOLUTE MONOCYTES (AUTO) 0.9 10^3/uL (0.1-1.4); ABSOLUTE NEUT (AUTO) 8.7 10^3/uL (1.7-8.2); BASOPHILS % (AUTO) 0.7 % (0-2); EOSINOPHILS % (AUTO) 1.6 % (0-6); HEMATOCRIT 35.4 % (36.0-47.0); HEMOGLOBIN 11.3 g/dL (12.0-15.5); HGB HCT DIFFERENCE -1.5; LYMPHOCYTES % (AUTO) 8.2 % (13-45); MEAN CORPUSCULAR HEMOGLOBIN 27.5 pg (27.0-33.4); MEAN CORPUSCULAR VOLUME 86 fl (80-97); MONOCYTES % (AUTO) 8.4 % (3-13); RED BLOOD COUNT 4.12 10^6/uL (3.72-5.28); RED CELL DISTRIBUTION WIDTH 17.2 % (11.5-14.0); SEGMENTED NEUTROPHILS % (AUTO) 81.1 % (42-78); WHITE BLOOD COUNT 10.8 10^3/uL (4.0-10.5)
[2017-02-11 08:29] LABS: ANION GAP 8 (5-19); BLOOD UREA NITROGEN 16 mg/dL (7-20); CALCIUM 8.8 mg/dL (8.4-10.2); CARBON DIOXIDE 24 mmol/L (22-30); CHLORIDE 110 mmol/L (98-107); GLUCOSE 114 mg/dL (75-110); MAGNESIUM 1.3 mg/dL (1.6-2.3); POTASSIUM 3.8 mmol/L (3.6-5.0); SODIUM 142.2 mmol/L (137-145)
[2017-02-11] MEDS: LABETALOL HCL 200 MG TABLET PO SCH ×2 (10:18→21:16)
[2017-02-11] MEDS: CYANOCOBALAMIN (VITAMIN B-12) 1,000 MCG TABLET PO SCH (10:19)
[2017-02-11] MEDS ORDERED: MAGNESIUM SULFATE/D5W 100 ML IV ONE (11:16)
--- NOTE | 2017-02-11 14:26 | RADIOLOGY REPORT (SQ) ---
EXAM DESCRIPTION: CHEST SINGLE VIEW COMPLETED DATE/TIME: 02/11/2017 1:54 pm REASON FOR STUDY: leukocytosis, tacht, ? aspiration COMPARISON: AP chest 05/18/2008 EXAM PARAMETERS: NUMBER OF VIEWS: One view. TECHNIQUE: Single frontal radiographic view of the chest acquired. RADIATION DOSE: NA LIMITATIONS: None. FINDINGS: LUNGS AND PLEURA: Left retrocardiac airspace disease atelectasis versus pneumonia. Right lung clear. No gross pleural effusions or pneumothorax. MEDIASTINUM AND HILAR STRUCTURES: No masses. Contour normal. HEART AND VASCULAR STRUCTURES: Massive cardiomegaly, increased since 2007 BONES: Osteoporotic, old healed right humeral neck fracture HARDWARE: None in the chest. OTHER: No other significant finding. IMPRESSION: Massive cardiomegaly Left retrocardiac airspace disease atelectasis versus pneumonia TECHNICAL DOCUMENTATION: JOB ID: [id number]
--- NOTE | 2017-02-11 16:18 | PDOC PROGRESS REPORT ---
Physical Exam Vital Signs: Temp Pulse Resp BP Pulse Ox 98.9 F 93 18 180/78 H 95 02/11/17 11:50 02/11/17 11:50 02/11/17 11:50 02/11/17 11:50 02/11/17 11:50 Intake & Output 02/10/17 02/11/17 02/12/17 06:59 06:59 06:59 Intake Total 3194 1047 Balance 3194 1047 Weight 47 kg 47 kg Results Laboratory Results: 02/11/17 07:52 02/11/17 07:52 02/11/17 02/11/17 07:52 07:52 WBC 10.8 H RBC 4.12 Hgb 11.3 L Hct 35.4 L MCV 86 MCH 27.5 MCHC 32.0 RDW 17.2 H Plt Count 189 Seg Neutrophils % 81.1 H Lymphocytes % 8.2 L Monocytes % 8.4 Eosinophils % 1.6 Basophils % 0.7 Absolute Neutrophils 8.7 H Absolute Lymphocytes 0.9 Absolute Monocytes 0.9 Absolute Eosinophils 0.2 Absolute Basophils 0.1 Sodium 142.2 Potassium 3.8 Chloride 110 H Carbon Dioxide 24 Anion Gap 8 BUN 16 Creatinine 0.80 Est GFR ( Amer) > 60 Est GFR (Non-Af Amer) > 60 Glucose 114 H Calcium 8.8 Magnesium 1.3 L Impressions: Chest X-Ray 02/11/17 00:00 IMPRESSION: Massive cardiomegaly Left retrocardiac airspace disease atelectasis versus pneumonia Assessment & Plan - Diagnosis (1) Pneumonia Plan: The patient has leukocytosis and tachycardia this morning. Family reports she was choking on her feet yesterday. She had a chest x-ray which reveals a possible left lower lobe infiltrate. She will be started on IV Zosyn. I am going to get speech therapy to see the patient as well. She may need a modified diet. (2) Acute blood loss anemia Is this a current diagnosis for this admission?: YesPlan: Likely secondary to diverticular bleed. She could also had internal hemorrhoids. In any event her hemoglobin is stable. (3) Accelerated essential hypertension Is this a current diagnosis for this admission?: YesPlan: Blood pressure is a little high this afternoon. She will be started back on her labetalol this afternoon. She has IV hydralazine available as needed. She will continue her usual regimen. (4) Afib Qualifiers: Atrial fibrillation type: chronic Qualified Code(s): I48.2 - Chronic atrial fibrillation Is this a current diagnosis for this admission?: YesPlan: Currently rate controlled. She is not a candidate for anticoagulation. She has a history of hemorrhagic CVA as well as rectal bleeding. (5) Dementia Qualifiers: Dementia type: unspecified type Dementia behavioral disturbance: without behavioral disturbance Qualified Code(s): F03.90 - Unspecified dementia without behavioral disturbance Is this a current diagnosis for this admission?: YesPlan: The patient is back to her cognitive baseline however she is somewhat somnolent today. She has been sleeping a lot according to the daughter. (6) ICH (intracerebral hemorrhage) Qualifiers: Intracerebral hemorrhage etiology: nontraumatic Cerebral hemorrhage location: unspecified cerebral location Laterality: unspecified laterality Qualified Code(s): I61.9 - Nontraumatic intracerebral hemorrhage, unspecified Is this a current diagnosis for this admission?: YesPlan: History of bleed in the past. She is not a candidate for any sort of anticoagulation or aspirin therapy. (7) Rectal bleed Is this a current diagnosis for this admission?: YesPlan: Likely diverticular bleed although I cannot rule out internal hemorrhoids. The daughter has decided not to pursue workup. Unfortunately she continues to have some bleeding. We will monitor her overnight - Time Time Spent with patient: 15-24 minutes Disposition: Inpatient hospitalization remains necessary. The patient looks like she is developing an early pneumonia. Timing of disposition will be determined by her clinical course.
[2017-02-11 17:41] LABS: APPEARANCE,URINE CLEAR; BILIRUBIN,URINE NEGATIVE (NEGATIVE); GLUCOSE, URINE NEGATIVE (NEGATIVE); KETONES,URINE NEGATIVE (NEGATIVE); LEUKOCYTE ESTERASE,URINE NEGATIVE (NEGATIVE); NITRITE,URINE NEGATIVE (NEGATIVE); PROTEIN,URINE 30 mg/dL (NEGATIVE); URINE SPECIFIC GRAVITY 1.013; UROBILINOGEN,URINE NEGATIVE mg/dL (<2.0)
[2017-02-11] MEDS: PIPERACILLIN SODIUM/TAZOBACTAM 3.375 GM in NORMAL SALINE 100 ML IV SCH (18:33)
[2017-02-11] MEDS: TRAZODONE HCL 50 MG TABLET PO SCH (21:16)
[2017-02-11] MEDS: ATORVASTATIN CALCIUM 20 MG TABLET PO SCH (21:16)
[2017-02-11] MEDS: LATANOPROST 0.005% OPH SOLN 2.5 ML OU SCH (21:20)
[2017-02-11] MEDS ORDERED: (PENDING PHARMACY ID) (Labetalol Hcl [Trandate] 100 MG) PO SCH (22:00)
[2017-02-12] MEDS: ENALAPRILAT DIHYDRATE INJ/PF 1.25 MG/1 ML SDV IV PRN ×2 (01:18→05:16)
[2017-02-12] MEDS: PIPERACILLIN SODIUM/TAZOBACTAM 3.375 GM in NORMAL SALINE 100 ML IV SCH ×5 (01:23→23:05)
[2017-02-12] MEDS: LANSOPRAZOLE 30 MG TAB.RAP.DR PO SCH (05:23)
[2017-02-12] MEDS: HYDRALAZINE HCL 25 MG TABLET PO SCH ×3 (05:23→20:55)
--- NOTE | 2017-02-12 07:16 | PDOC PROGRESS REPORT ---
Subjective Progress Note for:: 02/12/17 Subjective:: no complaints. Minimal cough noted by family. Physical Exam Vital Signs: Temp Pulse Resp BP Pulse Ox 97.9 F 81 18 116/61 98 02/12/17 04:34 02/12/17 04:34 02/12/17 04:34 02/12/17 04:34 02/12/17 04:34 Intake & Output 02/10/17 02/11/17 02/12/17 07:59 07:59 07:59 Intake Total 3194 1047 856 Balance 3194 1047 856 Weight 103 lb 9.876 oz 103 lb 9.876 oz 103 lb 9.876 oz General appearance: PRESENT: no acute distress Respiratory exam: PRESENT: rales - few L base Cardiovascular exam: PRESENT: irregular rhythm. ABSENT: diastolic murmur, systolic murmur GI/Abdominal exam: ABSENT: mass, organolmegaly, tenderness Extremities exam: ABSENT: pedal edema Neurological exam: ABSENT: oriented to situation Psychiatric exam: PRESENT: appropriate affect Results Laboratory Results: 02/11/17 07:52 02/11/17 07:52 02/11/17 02/11/17 02/11/17 07:52 07:52 17:15 WBC 10.8 H RBC 4.12 Hgb 11.3 L Hct 35.4 L MCV 86 MCH 27.5 MCHC 32.0 RDW 17.2 H Plt Count 189 Seg Neutrophils % 81.1 H Lymphocytes % 8.2 L Monocytes % 8.4 Eosinophils % 1.6 Basophils % 0.7 Absolute Neutrophils 8.7 H Absolute Lymphocytes 0.9 Absolute Monocytes 0.9 Absolute Eosinophils 0.2 Absolute Basophils 0.1 Sodium 142.2 Potassium 3.8 Chloride 110 H Carbon Dioxide 24 Anion Gap 8 BUN 16 Creatinine 0.80 Est GFR ( Amer) > 60 Est GFR (Non-Af Amer) > 60 Glucose 114 H Calcium 8.8 Magnesium 1.3 L Urine Color YELLOW Urine Appearance CLEAR Urine pH 6.0 Ur Specific [place] 1.013 Urine Protein 30 H Urine Glucose (UA) NEGATIVE Urine Ketones NEGATIVE Urine Blood NEGATIVE Urine Nitrite NEGATIVE Ur Leukocyte Esterase NEGATIVE Impressions: Chest X-Ray 02/11/17 00:00 IMPRESSION: Massive cardiomegaly Left retrocardiac airspace disease atelectasis versus pneumonia Assessment & Plan - Diagnosis (1) Rectal bleed Is this a current diagnosis for this admission?: YesPlan: hct35*3d after 2u (2) Pneumonia Qualifiers: Pneumonia type: aspiration pneumonia Aspiration pneumonia type: unspecified Laterality: left Lung location: lower lobe of lung Qualified Code(s): J69.0 - Pneumonitis due to inhalation of food and vomit Is this a current diagnosis for this admission?: YesPlan: choked on food 2d ago. Day2 analilia
[2017-02-12] MEDS: LABETALOL HCL 200 MG TABLET PO SCH ×2 (10:49→20:55)
[2017-02-12] MEDS: CYANOCOBALAMIN (VITAMIN B-12) 1,000 MCG TABLET PO SCH (10:50)
[2017-02-12] MEDS: TRAZODONE HCL 50 MG TABLET PO SCH (21:03)
[2017-02-12] MEDS: LATANOPROST 0.005% OPH SOLN 2.5 ML OU SCH (21:04)
[2017-02-12] MEDS: ATORVASTATIN CALCIUM 20 MG TABLET PO SCH (21:04)
[2017-02-13] MEDS: HYDRALAZINE HCL 25 MG TABLET PO SCH ×3 (05:30→21:18)
[2017-02-13] MEDS: LANSOPRAZOLE 30 MG TAB.RAP.DR PO SCH (05:31)
[2017-02-13] MEDS: PIPERACILLIN SODIUM/TAZOBACTAM 3.375 GM in NORMAL SALINE 100 ML IV SCH ×3 (05:31→17:20)
--- NOTE | 2017-02-13 07:09 | PDOC PROGRESS REPORT ---
Subjective Progress Note for:: 02/13/17 Subjective:: no cough. Physical Exam Vital Signs: Temp Pulse Resp BP Pulse Ox 97.8 F 83 20 187/78 H 97 02/13/17 00:20 02/13/17 06:47 02/13/17 04:17 02/13/17 04:17 02/13/17 00:20 Intake & Output 02/11/17 02/12/17 02/13/17 07:59 07:59 07:59 Intake Total 7072 443 3946 Balance 3719 459 1103 Weight 103 lb 9.876 oz 103 lb 9.876 oz 117 lb 15.157 oz General appearance: PRESENT: no acute distress Respiratory exam: PRESENT: clear to auscultation julisa Cardiovascular exam: PRESENT: irregular rhythm, systolic murmur. ABSENT: diastolic murmur Murmur grade: 1 GI/Abdominal exam: ABSENT: mass, organolmegaly, tenderness Extremities exam: ABSENT: pedal edema Neurological exam: ABSENT: oriented to situation Psychiatric exam: PRESENT: appropriate affect Results Laboratory Results: 02/11/17 07:52 02/11/17 07:52 Abnormal - 24 hr 02/12/17 02/12/17 12:08 17:33 POC Glucose 157 H 136 H Impressions: Chest X-Ray 02/11/17 00:00 IMPRESSION: Massive cardiomegaly Left retrocardiac airspace disease atelectasis versus pneumonia Assessment & Plan - Diagnosis (1) Rectal bleed Is this a current diagnosis for this admission?: Yes (2) Pneumonia Qualifiers: Pneumonia type: aspiration pneumonia Aspiration pneumonia type: unspecified Laterality: left Lung location: lower lobe of lung Qualified Code(s): J69.0 - Pneumonitis due to inhalation of food and vomit Is this a current diagnosis for this admission?: YesPlan: continue zosyn. Not ready for po antibiotic & home yet. Consider home on augmentin tomorrow. - Inpatient Certification Based on my medical assessment, after consideration of the patient's comorbidities, presenting symptoms, or acuity I expect that the services needed warrant INPATIENT care.: Yes I certify that my determination is in accordance with my understanding of Medicare's requirements for reasonable and necessary INPATIENT services [42 CFR 412.3e].: Yes Medical Necessity: Significant Comorbidiites Make Outpatient Treatment Too Risky , Need Close Monitoring Due to Risk of Patient Decompensation, Need for IV Antibiotics, Risk of Complication if Not Cared For in Hospital
[2017-02-13] MEDS ORDERED: MAGNESIUM OXIDE 400 MG TABLET PO SCH (10:00)
[2017-02-13] MEDS ORDERED: LISINOPRIL 10 MG TABLET PO SCH (10:00)
[2017-02-13] MEDS: LABETALOL HCL 200 MG TABLET PO SCH ×2 (10:39→21:18)
[2017-02-13] MEDS: CYANOCOBALAMIN (VITAMIN B-12) 1,000 MCG TABLET PO SCH (10:39)
[2017-02-13] MEDS: ATORVASTATIN CALCIUM 20 MG TABLET PO SCH (21:16)
[2017-02-13] MEDS: TRAZODONE HCL 50 MG TABLET PO SCH (21:17)
[2017-02-13] MEDS: LATANOPROST 0.005% OPH SOLN 2.5 ML OU SCH (21:23)
[2017-02-13] MEDS ORDERED: MAGNESIUM OXIDE 400 MG TABLET PO ONE (22:00)
[2017-02-14] MEDS: PIPERACILLIN SODIUM/TAZOBACTAM 3.375 GM in NORMAL SALINE 100 ML IV SCH ×2 (00:27→06:11)
[2017-02-14] MEDS: HYDRALAZINE HCL 25 MG TABLET PO SCH (06:11)
[2017-02-14] MEDS: LANSOPRAZOLE 30 MG TAB.RAP.DR PO SCH (06:12)
--- NOTE | 2017-02-14 08:15 | PDOC DISCHARGE SUMMARY ---
General - Admit/Disc Date/PCP Admission Date/Primary Care Provider: 02/06/17 08:41 JUDAH CASTLE MD Discharge Date: 02/14/17 - Discharge Diagnosis (1) Rectal bleed Is this a current diagnosis for this admission?: Yes (2) Pneumonia Is this a current diagnosis for this admission?: Yes - Additional Information Resuscitation Status: Do Not Resuscitate Discharge Diet: Diabetic Discharge Activity: Activity As Tolerated Home Medications: Atorvastatin Calcium [Lipitor 20 mg Tablet] 20 mg PO QHS 02/06/17 Cyanocobalamin (Vitamin B-12) [Vitamin B-12 1000 mcg Tablet] 1,000 mcg PO DAILY 02/06/17 Latanoprost [Xalatan 0.005% Oph Soln 2.5 ml] 1 drop OU QHS 02/06/17 Pantoprazole Sodium [Protonix] 40 mg PO DAILY 02/06/17 Trazodone HCl [Desyrel] 150 mg PO QHS 02/06/17 Amox Tr/Potassium Clavulanate [Augmentin 875-125 mg Tablet] 1 tab PO Q12H #14 tablet 02/14/17 Labetalol HCl [Normodyne 200 mg Tablet] 200 mg PO Q12 #60 tablet 02/14/17 Lisinopril [Zestril] 40 mg PO DAILY #30 tablet 02/14/17 Magnesium Oxide [Mag-Ox 400 mg Tablet] 400 mg PO BID #60 tablet 02/14/17 History of Present Illness Patient complains of: rectal bleeding History of Present Illness: FAWAD SÁNCHEZ is a 86 year old 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 Hospital Course Hospital Course: She had a few more bloody stools: maroon to red. Hct fell to 25. After 2u prbc hct was 35 for 3d. Aspirin was stopped. Colonoscopy was avoided because of comorbidities. 4d ago she choked on food. WBC spiked to 11. CXR showed faint LLL infiltrate. She got 3d zosyn. Cough has been minimal. Yesterday she had vt 5 beats. Mg was 1.3. MgO & labetalol were doubled. Prevnar was given. Physical Exam Vital Signs: Temp Pulse Resp BP Pulse Ox 97.7 F 80 20 171/72 H 97 02/14/17 03:44 02/14/17 03:44 02/14/17 03:44 02/14/17 03:44 02/14/17 03:44 Intake & Output 02/13/17 02/14/17 02/15/17 07:59 07:59 07:59 Intake Total 1017 1224 Balance 1017 1224 Weight 117 lb 15.157 oz 112 lb 3.445 oz General appearance: PRESENT: no acute distress Respiratory exam: PRESENT: clear to auscultation julisa Cardiovascular exam: PRESENT: irregular rhythm. ABSENT: diastolic murmur, systolic murmur Murmur grade: 1 GI/Abdominal exam: ABSENT: mass, organolmegaly, tenderness Extremities exam: ABSENT: pedal edema Neurological exam: ABSENT: oriented to situation Psychiatric exam: PRESENT: appropriate affect Skin exam: PRESENT: erythema - L axilla Results Laboratory Results: 02/11/17 07:52 02/11/17 07:52 02/11/17 17:15 Clean Catch Midstream Urine Culture - Final NO GROWTH 2 DAYS Labs- Last Values WBC 10.8 10^3/uL (4.0-10.5) H 02/11/17 07:52 RBC 4.12 10^6/uL (3.72-5.28) 02/11/17 07:52 Hgb 11.3 g/dL (12.0-15.5) L 02/11/17 07:52 Hct 35.4 % (36.0-47.0) L 02/11/17 07:52 MCV 86 fl (80-97) 02/11/17 07:52 MCH 27.5 pg (27.0-33.4) 02/11/17 07:52 MCHC 32.0 g/dL (32.0-36.0) 02/11/17 07:52 RDW 17.2 % (11.5-14.0) H 02/11/17 07:52 Plt Count 189 10^3/uL (150-450) 02/11/17 07:52 Seg Neutrophils % 81.1 % (42-78) H 02/11/17 07:52 Lymphocytes % 8.2 % (13-45) L 02/11/17 07:52 Monocytes % 8.4 % (3-13) 02/11/17 07:52 Eosinophils % 1.6 % (0-6) 02/11/17 07:52 Basophils % 0.7 % (0-2) 02/11/17 07:52 Absolute Neutrophils 8.7 10^3/uL (1.7-8.2) H 02/11/17 07:52 Absolute Lymphocytes 0.9 10^3/uL (0.5-4.7) 02/11/17 07:52 Absolute Monocytes 0.9 10^3/uL (0.1-1.4) 02/11/17 07:52 Absolute Eosinophils 0.2 10^3/uL (0.0-0.6) 02/11/17 07:52 Absolute Basophils 0.1 10^3/uL (0.0-0.2) 02/11/17 07:52 PT 13.5 SEC (11.4-15.4) 02/07/17 00:31 INR 0.96 02/07/17 00:31 APTT 49.5 SEC (23.5-35.8) H 02/07/17 00:31 Sodium 142.2 mmol/L (137-145) 02/11/17 07:52 Potassium 3.8 mmol/L (3.6-5.0) 02/11/17 07:52 Chloride 110 mmol/L (98-107) H 02/11/17 07:52 Carbon Dioxide 24 mmol/L (22-30) 02/11/17 07:52 Anion Gap 8 (5-19) 02/11/17 07:52 BUN 16 mg/dL (7-20) 02/11/17 07:52 Creatinine 0.80 mg/dL (0.52-1.25) 02/11/17 07:52 Est GFR ( Amer) > 60 (>60) 02/11/17 07:52 Est GFR (Non-Af Amer) > 60 (>60) 02/11/17 07:52 Glucose 114 mg/dL (75-110) H 02/11/17 07:52 POC Glucose 99 mg/dL (70-110) 02/14/17 05:56 Calcium 8.8 mg/dL (8.4-10.2) 02/11/17 07:52 Magnesium 1.3 mg/dL (1.6-2.3) L 02/11/17 07:52 Total Bilirubin 0.6 mg/dL (0.2-1.3) 02/06/17 06:35 Direct Bilirubin 0.3 mg/dL (0.0-0.4) 02/06/17 06:35 Indirect Bilirubin Not Reportable 02/06/17 06:35 Neonat Total Bilirubin Not Reportable 02/06/17 06:35 AST 24 U/L (14-36) 02/06/17 06:35 ALT 27 U/L (9-52) 02/06/17 06:35 Alkaline Phosphatase 99 U/L (38-126) 02/06/17 06:35 Total Protein 6.4 g/dL (6.3-8.2) 02/06/17 06:35 Albumin 3.6 g/dL (3.5-5.0) 02/06/17 06:35 Urine Color YELLOW 02/11/17 17:15 Urine Appearance CLEAR 02/11/17 17:15 Urine pH 6.0 (5.0-9.0) 02/11/17 17:15 Ur Specific [place] 1.013 02/11/17 17:15 Urine Protein 30 mg/dL (NEGATIVE) H 02/11/17 17:15 Urine Glucose (UA) NEGATIVE mg/dL (NEGATIVE) 02/11/17 17:15 Urine Ketones NEGATIVE mg/dL (NEGATIVE) 02/11/17 17:15 Urine Blood NEGATIVE (NEGATIVE) 02/11/17 17:15 Urine Nitrite NEGATIVE (NEGATIVE) 02/11/17 17:15 Urine Bilirubin NEGATIVE (NEGATIVE) 02/11/17 17:15 Urine Urobilinogen NEGATIVE mg/dL (<2.0) 02/11/17 17:15 Ur Leukocyte Esterase NEGATIVE (NEGATIVE) 02/11/17 17:15 Urine WBC 1-5 /HPF 02/11/17 17:15 Hyaline Casts 1-5 /LPF 02/11/17 17:15 Urine Mucus 1+ 02/11/17 17:15 Urine Ascorbic Acid NEGATIVE (NEGATIVE) 02/11/17 17:15 Blood Type O POSITIVE 02/06/17 10:15 Blood Type Confirm O POSITIVE 02/06/17 10:15 Antibody Screen NEGATIVE 02/06/17 10:15 Crossmatch See Detail 02/06/17 10:15 Impressions: Chest X-Ray 02/11/17 00:00 IMPRESSION: Massive cardiomegaly Left retrocardiac airspace disease atelectasis versus pneumonia Qualifiers PATEINT BEING DISCHARGED WITH ANY OF THE FOLLOWING DIAGNOSIS?: No Plan Discharge Plan: home. 8d ov
[2017-02-14] MEDS ORDERED: PNEUMOC 13-VAL CONJ-DIP CRM/PF 0.5 ML DISP.SYRIN IM ONE (09:00)
[2017-02-14] MEDS: CYANOCOBALAMIN (VITAMIN B-12) 1,000 MCG TABLET PO SCH (09:28)
[2017-02-14] MEDS ORDERED: MAGNESIUM OXIDE 400 MG TABLET PO SCH (10:00)
[2017-02-14] MEDS ORDERED: LABETALOL HCL 200 MG TABLET PO SCH (10:00)
[2017-02-14] MEDS ORDERED: LISINOPRIL 10 MG TABLET PO SCH (10:00)
[2017-02-14 11:42] VITALS: BP 174/65
== END 2017-02-14 12:12 | disposition home or self-care (01) | DRG 377 ==
LOC: ER 03:55 → EH 08:27 → UNDOADMIN 08:27 → EH 08:41 → 3S 10:35
PROVIDERS: ADMIT Family Medicine; ATTEND Family Medicine
PROC: 30233N1 Transfusion of Nonautologous Red Blood Cells into Peripheral Vein, Percutaneous Approach (ICD-10-PCS; principal; 2017-02-08)
DX: K62.5 Hemorrhage of anus and rectum (principal); J69.0 Pneumonitis due to inhalation of food and vomit; D62 Acute posthemorrhagic anemia; E78.5 Hyperlipidemia, unspecified; I10 Essential (primary) hypertension; I48.2 Chronic atrial fibrillation; E11.9 Type 2 diabetes mellitus without complications; M81.0 Age-related osteoporosis without current pathological fracture; F01.50 Vascular dementia, unspecified severity, without behavioral disturbance, psychotic disturbance, mood disturbance, and anxiety; M19.90 Unspecified osteoarthritis, unspecified site; Z79.899 Other long term (current) drug therapy; Z66 Do not resuscitate; Z86.73 Personal history of transient ischemic attack (TIA), and cerebral infarction without residual deficits
CPT/HCPCS: 36415; 36430; 71010; 80048; 80053; 81001; 82962; 83735; 85025; 85027; 85610; 85730; 86850; 86900; 86901; 86920; 87086; 90670; 93005; 93010; 96365; 99284; G8978-GP; G8979-GP; J2543; J3475; J3490; J7030; P9016; S0164

== ENCOUNTER 2017-12-11 22:09 | Inpatient (IN) | payer MEDICARE, OTHER ==
[2017-12-11] MEDS ORDERED: CEFTRIAXONE 1 GM/D5W RTU 1 GM/50 ML RTUPB IV ONE (22:15)
--- NOTE | 2017-12-11 22:51 | ER Document Report ---
ED General - General Chief Complaint: Respiratory Distress Stated Complaint: DIFFICULTY BREATHING Time Seen by Provider: 12/11/17 22:15 Mode of Arrival: Medic Information source: Emergency Med Personnel Cannot obtain history due to: Unstable vital signs, Altered mental status Notes: 87-year-old female who is a DNR/DNI presents by EMS altered and minimally responsive, patient was noted to have a recent CVA and has been having gradually worsening mentation over the past week. Patient was noted to be gurgling and coughing today TRAVEL OUTSIDE OF THE [place] IN LAST 30 DAYS: No - HPI Onset: Last week Onset/Duration: Persistent, Worse Quality of pain: No pain Severity: Severe Pain Level: Denies Associated symptoms: Shortness of breath, Weakness Exacerbated by: Denies Relieved by: Denies Similar symptoms previously: No Recently seen / treated by doctor: Yes - Related Data Allergies/Adverse Reactions: No Known Allergies Allergy (Unverified 08/09/11 12:34) Past Medical History - Social History Smoking Status: Never Smoker Cigarette use (# per day): No Chew tobacco use (# tins/day): No Smoking Education Provided: No Family History: Hypertension - Past Medical History Cardiac Medical History: Reports: Hx Atrial Fibrillation - coumadin till pontine hemorrhage, Hx Hypercholesterolemia, Hx Hypertension Pulmonary Medical History: Denies: Hx Tuberculosis Neurological Medical History: Reports: Hx Cerebrovascular Accident - 3 YEARS AGO Endocrine Medical History: Reports: Hx Diabetes Mellitus Type 2 Renal/ Medical History: Denies: Hx Peritoneal Dialysis Musculoskeltal Medical History: Reports Hx Arthritis Psychiatric Medical History: Reports: Hx Dementia - multiinfarct, Hx Depression - SINCE Past Surgical History: Reports: Other - iridectomy. Denies: Hx Pacemaker - Immunizations Hx Diphtheria, Pertussis, Tetanus Vaccination: No Hx Pneumococcal Vaccination: 08/14/11 Review of Systems - Review of Systems Notes: Unable to obtain the review of systems from the patient due to altered mental status PHYSICAL EXAMINATION: GENERAL: Ill-appearing female moderate to significant respiratory distress HEAD: Atraumatic, normocephalic. EYES: Pupils equal round and reactive to light, extraocular movements intact, conjunctiva are normal. ENT: Nares patent, oropharynx clear without exudates. Moist mucous membranes. NECK: Normal range of motion, supple without lymphadenopathy LUNGS: Coarse rhonchi at the bases HEART: Tachycardic ABDOMEN: Soft, nontender, nondistended abdomen. No guarding, no rebound. No masses appreciated. Female : deferred Musculoskeletal: Patient not moving her extremities NEUROLOGICAL: GCS 5 SKIN: Warm, Dry, normal turgor, no rashes or lesions noted. Dictation was performed using [employer] voice recognition software Physical Exam - Vital signs Vitals: Resp Pulse Ox 59 H 100 12/11/17 22:15 12/11/17 22:15 Course - Re-evaluation Re-evalutation: 12/11/17 22:51 Given patient's DNR/DNI status I will place her on BiPAP to hopefully avoid further deterioration, I expect patient to be septic with possible aspiration, antibiotics have been ordered 12/11/17 23:00 I have spoken with the family they would like for patient to be treated for possible infection and requests for comfort 12/11/17 23:24 Patient's blood sugar is 924 will start IV fluids - Vital Signs Vital signs: Temp Pulse Resp BP Pulse Ox 98.8 F 87 42 H 155/79 H 100 12/11/17 23:04 12/11/17 23:04 12/11/17 23:04 12/11/17 23:04 12/11/17 23:04 - Laboratory Result Diagrams: 12/11/17 22:38 12/11/17 22:38 Laboratory results interpreted by me: 12/11/17 12/11/17 22:38 22:38 Sodium 151.5 H Potassium 5.9 H Chloride 108 H BUN 147 H Creatinine 3.94 H Est GFR ( Amer) 13 L Est GFR (Non-Af Amer) 11 L Glucose 924 H* Lactic Acid 3.0 H Direct Bilirubin 0.9 H Alkaline Phosphatase 159 H Total Protein 5.3 L Albumin 2.7 L Critical Care Note - Critical Care Note Total time excluding time spent on procedures (mins): 42 Comments: 42 minutes of critical care time spent in direct contact evaluating and reevaluating the patient, treating symptoms, reviewing labs and studies and speaking with family and consultants excluding any procedures Discharge - Discharge Clinical Impression: Metabolic encephalopathy, Hyperglycemia, DNR (do not resuscitate) Aspiration pneumonia Qualifiers: Aspiration pneumonia type: unspecified Laterality: left Lung location: lower lobe of lung Qualified Code(s): J69.0 - Pneumonitis due to inhalation of food and vomit Condition: Critical Disposition: ADMITTED INPATIENT Admitting Provider: Sonya Unit Admitted: IMCU Referrals: JUDAH CASTLE MD [Primary Care Provider] - Follow up as needed
[2017-12-11] MEDS ORDERED: LORAZEPAM INJ 2 MG/1 ML VIAL IV ONE (23:00)
[2017-12-11 23:09] LABS: ALANINE AMINOTRANSFERASE 43 U/L (9-52); ALBUMIN 2.7 g/dL (3.5-5.0); ALKALINE PHOSPHATASE 159 U/L (38-126); ANION GAP 18 (5-19); ASPARTATE AMINO TRANSFERASE 30 U/L (14-36); BILIRUBIN,DIRECT 0.9 mg/dL (0.0-0.4); BILIRUBIN,TOTAL 1.2 mg/dL (0.2-1.3); CALCIUM 9.4 mg/dL (8.4-10.2); CARBON DIOXIDE 26 mmol/L (22-30); CHLORIDE 108 mmol/L (98-107); POTASSIUM 5.9 mmol/L (3.6-5.0); SODIUM 151.5 mmol/L (137-145); TOTAL PROTEIN 5.3 g/dL (6.3-8.2)
[2017-12-11] MEDS ORDERED: CEFTRIAXONE INJ 1000 MG VIAL ONE (23:14)
--- NOTE | 2017-12-11 23:14 | RADIOLOGY REPORT (SQ) ---
EXAM DESCRIPTION: CHEST SINGLE VIEW COMPLETED DATE/TIME: 12/11/2017 10:47 pm REASON FOR STUDY: altered, hypoxemia COMPARISON: 04/13/2017 EXAM PARAMETERS: NUMBER OF VIEWS: One view. TECHNIQUE: Single frontal radiographic view of the chest acquired. RADIATION DOSE: NA LIMITATIONS: None. FINDINGS: LUNGS AND PLEURA: Similar left basilar airspace disease -effusion. Right lung appears mami ar. MEDIASTINUM AND HILAR STRUCTURES: Stable. HEART AND VASCULAR STRUCTURES: Stable cardiomegaly. BONES: No acute findings. HARDWARE: None in the chest. OTHER: No other significant finding. IMPRESSION: Stable radiographic appearance. Similar left basilar airspace disease -effusion and car diomegaly. TECHNICAL DOCUMENTATION: JOB ID: [id number] 2010 [employer]- All Rights Reserved Reading location - IP/workstation name: [email or web address]
[2017-12-11 23:17] LABS: BLOOD UREA NITROGEN 147 mg/dL (7-20)
[2017-12-11 23:20] LABS: GLUCOSE 924 mg/dL (75-110)
[2017-12-11] MEDS ORDERED: NORMAL SALINE 1000 ML 1,000 ML IV PRN (23:24)
[2017-12-11] MEDS ORDERED: INSULIN REG, HUMAN 100 UNIT/ML 3 ML VIAL (PYX) IV ONE (23:24)
[2017-12-11 23:34] LABS: INTERNATIONAL RATION (INR) 1.21; PROTHROMBIN TIME 15.9 SEC (11.4-15.4)
[2017-12-12 00:03] LABS: VENOUS BLOOD BASE EXCESS -1.2 mmol/L; VENOUS BLOOD HCO3 25.6 mmol/L (20-32); VENOUS BLOOD PCO2 50.8 mmHg (35-63); VENOUS BLOOD PH 7.32 (7.30-7.42)
--- NOTE | 2017-12-12 00:05 | EKG REPORT ---
SEVERITY:- ABNORMAL ECG - ATRIAL FIBRILLATION RBBB AND LAFB : Confirmed by: Ke Cates 12-Dec-2017 00:04:22
[2017-12-12 00:10] LABS: RED BLOOD COUNT 4.37 10^6/uL (3.72-5.28); WHITE BLOOD COUNT 27.8 10^3/uL (4.0-10.5)
[2017-12-12 00:11] LABS: HEMATOCRIT 39.6 % (36.0-47.0); HEMOGLOBIN 11.3 g/dL (12.0-15.5); MEAN CORPUSCULAR HEMOGLOBIN 25.8 pg (27.0-33.4); MEAN CORPUSCULAR HGB CONC 28.5 g/dL (32.0-36.0); MEAN CORPUSCULAR VOLUME 91 fl (80-97); PLATELET COUNT 224 10^3/uL (150-450); RED CELL DISTRIBUTION WIDTH 18.7 % (11.5-14.0)
[2017-12-12 00:16] LABS: ABSOLUTE LYMPHOCYTES# (MANUAL) 0.3 10^3/uL (0.5-4.7); ABSOLUTE MONOCYTES # (MANUAL) 0.8 10^3/uL (0.1-1.4); ABSOLUTE NEUTROPHILS# (MANUAL) 26.7 10^3/uL (1.7-8.2); BASOPHILS % (MANUAL) 0 % (0-2); EOSINOPHILS % (MANUAL) 0 % (0-6); LYMPHOCYTES % (MANUAL) 1 % (13-45); MONOCYTES % (MANUAL) 3 % (3-13); SEGMENTED NEUTROPHILS % (MAN) 96 % (42-78); TOTAL CELLS COUNTED 100
[2017-12-12 00:21] LABS: ACANTHOCYTES 1+; ANISOCYTOSIS 2+; OVALOCYTES 1+; POIKILOCYTOSIS 1+; POLYCHROMASIA SLIGHT; SCHISTOCYTES 1+; TEAR DROP CELLS SLIGHT; TOXIC GRANULATION 1+
[2017-12-12 00:22] LABS: PLATELET COMMENT ADEQUATE; PLATELET LARGE PRESENT
[2017-12-12] MEDS ORDERED: INSULIN REG, HUMAN 100 UNIT/ML 3 ML VIAL (PYX) ONE (01:58)
[2017-12-12] MEDS ORDERED: DEXTROSE 40% GEL 15 GM TUBE PO PRN (02:22)
[2017-12-12] MEDS ORDERED: GLUCAGON,HUMAN RECOMB 1 MG INJ IM PRN (02:22)
[2017-12-12] MEDS ORDERED: DEXTROSE 50%-WATER SYRINGE 12.5 GM/25 ML DOSE IV PRN (02:22)
[2017-12-12] MEDS ORDERED: DEXTROSE 40% GEL 15 GM TUBE X 2 PO PRN (02:22)
[2017-12-12] MEDS ORDERED: NORMAL SALINE 1000 ML 1,000 ML IV PRN (02:24)
[2017-12-12] MEDS: INSULIN, REGULAR 100 UNIT/100 ML NORMAL SALINE IV PRN ×4 (04:00→14:21)
[2017-12-12 04:33] LABS: ANION GAP 19 (5-19); CALCIUM 8.1 mg/dL (8.4-10.2); CARBON DIOXIDE 21 mmol/L (22-30); CHLORIDE 117 mmol/L (98-107); SODIUM 156.8 mmol/L (137-145)
[2017-12-12 04:50] LABS: BLOOD UREA NITROGEN 140 mg/dL (7-20)
[2017-12-12 04:51] LABS: POTASSIUM 4.6 mmol/L (3.6-5.0)
[2017-12-12 04:55] LABS: GLUCOSE 663 mg/dL (75-110)
[2017-12-12] MEDS: NORMAL SALINE 1000 ML 1,000 ML IV PRN ×2 (05:47→10:48)
--- NOTE | 2017-12-12 07:33 | PDOC H&P ---
History of Present Illness Admission Date/PCP: 12/11/17 23:48 JUDAH CASTLE MD Patient complains of: weakness dyspnea History of Present Illness: FAWAD SÁNCHEZ is a 87 year old female with remote pontine hemorrhage and recent central retinal occlusion. A year ago I stopped metformin 500mg at supper because A1c was 6.1. She has become weaker in the last week and choked on food. Yesterday she coughed and gurgled. Past Medical History Cardiac Medical History: Reports: Atrial Fibrillation - coumadin till pontine hemorrhage, Hyperlipidema, Hypertension, Other - NSVT Pulmonary Medical History: Reports: None EENT Medical History: Reports: None Neurological Medical History: Reports: Hemorrhagic CVA Endocrine Medical History: Reports: Diabetes Mellitus Type 2 Renal/ Medical History: Reports: None Malignancy Medical History: Reports: None GI Medical History: Reports: Gastroesophageal Reflux Disease Musculoskeltal Medical History: Reports: Arthritis Skin Medical History: Reports: None Psychiatric Medical History: Reports: Dementia - multiinfarct, Depression - SINCE Traumatic Medical History: Reports: None Hematology: Reports: Anemia - iron & b12. Took iron [id number]. Infectious Medical History: Reports: None Past Surgical History Past Surgical History: Reports: Other - iridectomy Denies: Pacemaker Social History Information Source: Dr. Trivedi Lives with: Family Smoking Status: Never Smoker Frequency of Alcohol Use: None Hx Recreational Drug Use: No Hx Prescription Drug Abuse: No - Advance Directive Resuscitation Status: Do Not Resuscitate Family History Family History: Hypertension Parental Family History Reviewed: Yes Children Family History Reviewed: Yes Sibling(s) Family History Reviewed.: Yes Medication/Allergy Home Medications: Atorvastatin Calcium [Lipitor 20 mg Tablet] 20 mg PO QHS 02/06/17 Cyanocobalamin (Vitamin B-12) [Vitamin B-12 1000 mcg Tablet] 1,000 mcg PO DAILY 02/06/17 Latanoprost [Xalatan 0.005% Oph Soln 2.5 ml] 1 drop OU QHS 02/06/17 Pantoprazole Sodium [Protonix] 40 mg PO DAILY 02/06/17 Trazodone HCl [Desyrel] 150 mg PO QHS 02/06/17 Labetalol HCl [Normodyne 200 mg Tablet] 200 mg PO Q12 #60 tablet 02/14/17 Lisinopril [Zestril] 40 mg PO DAILY #30 tablet 02/14/17 Allergies/Adverse Reactions: No Known Allergies Allergy (Unverified 08/09/11 12:34) Review of Systems ROS unobtainable: Due to mental status - stupor. Daughter gave history. Constitutional: PRESENT: weight loss. ABSENT: fever(s) Respiratory: PRESENT: cough, dyspnea Gastrointestinal: ABSENT: constipation, diarrhea, hematochezia, vomiting Genitourinary: ABSENT: hematuria Neurological: PRESENT: focal weakness - R hemiparesis since pontine bleed in 2016, memory loss, weakness Physical Exam Vital Signs: Temp Pulse Resp BP Pulse Ox 96.0 F L 83 20 91/45 L 100 12/12/17 04:30 12/12/17 04:30 12/12/17 04:30 12/12/17 04:30 12/12/17 04:30 Intake & Output 12/10/17 12/11/17 12/12/17 07:59 07:59 07:59 Weight 91 lb 14.924 oz Mouth exam: PRESENT: dry mucosa Neck exam: ABSENT: lymphadenopathy, tenderness, thyromegaly, tracheal deviation Respiratory exam: PRESENT: rhonchi Cardiovascular exam: PRESENT: irregular rhythm. ABSENT: diastolic murmur, systolic murmur GI/Abdominal exam: ABSENT: mass, organolmegaly, tenderness Extremities exam: ABSENT: pedal edema Neurological exam: ABSENT: awake - stupor Results Laboratory Results: 12/12/17 04:09 Abnormal - 24 hr 12/11/17 12/11/17 12/11/17 22:38 22:38 22:38 WBC Hgb MCH MCHC RDW Seg Neuts % (Manual) Lymphocytes % (Manual) Abs Neuts (Manual) Abs Lymphs (Manual) PT 15.9 H Sodium 151.5 H Potassium 5.9 H Chloride 108 H Carbon Dioxide BUN 147 H Creatinine 3.94 H Est GFR ( Amer) 13 L Est GFR (Non-Af Amer) 11 L Glucose 924 H* POC Glucose Lactic Acid 3.0 H Calcium Direct Bilirubin 0.9 H Alkaline Phosphatase 159 H Total Protein 5.3 L Albumin 2.7 L 12/11/17 12/12/17 12/12/17 23:35 04:09 04:09 WBC 27.8 H Hgb 11.3 L MCH 25.8 L MCHC 28.5 L RDW 18.7 H Seg Neuts % (Manual) 96 H Lymphocytes % (Manual) 1 L Abs Neuts (Manual) 26.7 H Abs Lymphs (Manual) 0.3 L PT Sodium 156.8 H Potassium Chloride 117 H Carbon Dioxide 21 L BUN 140 H Creatinine 3.63 H Est GFR ( Amer) 14 L Est GFR (Non-Af Amer) 12 L Glucose 663 H* POC Glucose Lactic Acid 4.1 H Calcium 8.1 L Direct Bilirubin Alkaline Phosphatase Total Protein Albumin 12/12/17 12/12/17 05:27 06:44 WBC Hgb MCH MCHC RDW Seg Neuts % (Manual) Lymphocytes % (Manual) Abs Neuts (Manual) Abs Lymphs (Manual) PT Sodium Potassium Chloride Carbon Dioxide BUN Creatinine Est GFR ( Amer) Est GFR (Non-Af Amer) Glucose POC Glucose > 550 H* 509 H* Lactic Acid Calcium Direct Bilirubin Alkaline Phosphatase Total Protein Albumin Impressions: Chest X-Ray 12/11/17 22:15 IMPRESSION: Stable radiographic appearance. Similar left basilar airspace disease -effusion and cardiomegaly. Assessment & Plan - Diagnosis (1) Sepsis associated hypotension Is this a current diagnosis for this admission?: Yes Plan: continue ceftri & ivf (2) Aspiration pneumonia Qualifiers: Aspiration pneumonia type: due to gastric secretions Laterality: left Lung location: lower lobe of lung Qualified Code(s): J69.0 - Pneumonitis due to inhalation of food and vomit Is this a current diagnosis for this admission?: Yes (3) Acute kidney failure with tubular necrosis Is this a current diagnosis for this admission?: Yes Plan: ivf. Stop clif[place]. (4) Type 2 diabetes mellitus with diabetic chronic kidney disease Qualifiers: Chronic kidney disease stage: stage 3 (moderate) Is this a current diagnosis for this admission?: Yes (5) Hemorrhage of pars basalis of bao Is this a current diagnosis for this admission?: Yes (6) Vascular dementia without behavioral disturbance Is this a current diagnosis for this admission?: Yes (7) Central retinal artery occlusion of right eye Is this a current diagnosis for this admission?: Yes (8) Essential (primary) hypertension Is this a current diagnosis for this admission?: Yes (9) Chronic atrial fibrillation Is this a current diagnosis for this admission?: Yes (10) Ventricular tachycardia Is this a current diagnosis for this admission?: Yes (11) Gastro-esophageal reflux disease without esophagitis Is this a current diagnosis for this admission?: Yes - Inpatient Certification Based on my medical assessment, after consideration of the patient's comorbidities, presenting symptoms, or acuity I expect that the services needed warrant INPATIENT care.: Yes I certify that my determination is in accordance with my understanding of Medicare's requirements for reasonable and necessary INPATIENT services [42 CFR 412.3e].: Yes Medical Necessity: Failure to Improve With Outpatient Therapy, Significant Comorbidiites Make Outpatient Treatment Too Risky, Need Close Monitoring Due to Risk of Patient Decompensation, Need For IV Fluids, Need For Continuous Telemetry Monitoring, Need for IV Antibiotics, Risk of Complication if Not Cared For in Hospital, Risk of Diagnosis Which Will Require Inpatient Eval/Care/ Monitoring
[2017-12-12 08:38] LABS: ANION GAP 18 (5-19); CALCIUM 7.9 mg/dL (8.4-10.2); CARBON DIOXIDE 20 mmol/L (22-30); CHLORIDE 119 mmol/L (98-107); POTASSIUM 4.2 mmol/L (3.6-5.0); SODIUM 157.1 mmol/L (137-145)
[2017-12-12 08:56] LABS: BLOOD UREA NITROGEN 135 mg/dL (7-20)
[2017-12-12 09:01] LABS: GLUCOSE 447 mg/dL (75-110)
[2017-12-12] MEDS: FAMOTIDINE INJ/PF 20 MG/2 ML SDV IV SCH (09:36)
[2017-12-12] MEDS ORDERED: CEFTRIAXONE 1 GM/D5W RTU 1 GM/50 ML RTUPB IV SCH (10:00)
[2017-12-12 12:52] LABS: ANION GAP 15 (5-19); CALCIUM 8.1 mg/dL (8.4-10.2); CARBON DIOXIDE 20 mmol/L (22-30); CHLORIDE 122 mmol/L (98-107); GLUCOSE 219 mg/dL (75-110); POTASSIUM 4.1 mmol/L (3.6-5.0); SODIUM 156.8 mmol/L (137-145)
[2017-12-12 13:09] LABS: BLOOD UREA NITROGEN 137 mg/dL (7-20)
[2017-12-12] MEDS: DEXTROSE 5%-1/2 NORMAL SALINE 1,000 ML IV PRN ×2 (14:29→20:45)
[2017-12-12 14:49] LABS: APPEARANCE,URINE CLOUDY; BILIRUBIN,URINE NEGATIVE (NEGATIVE); COLOR,URINE AMBER; GLUCOSE, URINE 50 mg/dL (NEGATIVE); KETONES,URINE TRACE mg/dL (NEGATIVE); LEUKOCYTE ESTERASE,URINE LARGE (NEGATIVE); NITRITE,URINE NEGATIVE (NEGATIVE); PROTEIN,URINE 100 mg/dL (NEGATIVE); URINE SPECIFIC GRAVITY 1.017; UROBILINOGEN,URINE NEGATIVE mg/dL (<2.0)
[2017-12-12 17:21] LABS: ANION GAP 12 (5-19); CALCIUM 8.1 mg/dL (8.4-10.2); CARBON DIOXIDE 22 mmol/L (22-30); CHLORIDE 122 mmol/L (98-107); GLUCOSE 98 mg/dL (75-110); SODIUM 155.5 mmol/L (137-145)
[2017-12-12 17:51] LABS: BLOOD UREA NITROGEN 136 mg/dL (7-20); POTASSIUM 4.1 mmol/L (3.6-5.0)
[2017-12-12] MEDS: DEXTROSE 50%-WATER SYRINGE 25 GM/50 ML DOSE IV PRN (20:45)
[2017-12-12 20:49] LABS: ANION GAP 14 (5-19); CALCIUM 8.2 mg/dL (8.4-10.2); CARBON DIOXIDE 21 mmol/L (22-30); CHLORIDE 120 mmol/L (98-107); GLUCOSE 51 mg/dL (75-110); POTASSIUM 3.5 mmol/L (3.6-5.0); SODIUM 154.6 mmol/L (137-145)
[2017-12-12 21:05] LABS: BLOOD UREA NITROGEN 125 mg/dL (7-20)
[2017-12-12] MEDS: CEFTRIAXONE SODIUM 1,000 MG in DEXTROSE 5%-WATER 50 ML IV SCH (21:21)
[2017-12-13 01:14] LABS: ANION GAP 17 (5-19); CALCIUM 8.3 mg/dL (8.4-10.2); CARBON DIOXIDE 21 mmol/L (22-30); CHLORIDE 120 mmol/L (98-107); GLUCOSE 75 mg/dL (75-110); POTASSIUM 3.8 mmol/L (3.6-5.0); SODIUM 158.3 mmol/L (137-145)
[2017-12-13 01:40] LABS: BLOOD UREA NITROGEN 127 mg/dL (7-20)
[2017-12-13] MEDS: DEXTROSE 50%-WATER SYRINGE 25 GM/50 ML DOSE IV PRN (02:06)
[2017-12-13] MEDS ORDERED: GLUCAGON,HUMAN RECOMB 1 MG INJ IM PRN (02:49)
[2017-12-13] MEDS ORDERED: DEXTROSE 50%-WATER SYRINGE 12.5 GM/25 ML DOSE IV PRN (02:49)
[2017-12-13] MEDS ORDERED: DEXTROSE 50%-WATER SYRINGE 25 GM/50 ML DOSE IV PRN (02:49)
[2017-12-13] MEDS ORDERED: DEXTROSE 40% GEL 15 GM TUBE X 2 PO PRN (02:49)
[2017-12-13] MEDS ORDERED: DEXTROSE 40% GEL 15 GM TUBE PO PRN (02:49)
[2017-12-13] MEDS: INSULIN REG, HUMAN 100 UNIT/ML 3 ML VIAL (PYX) SUBCUT SCH ×3 (06:43→17:44)
--- NOTE | 2017-12-13 06:59 | PDOC PROGRESS REPORT ---
Subjective Progress Note for:: 12/13/17 Subjective:: coma Reason For Visit: SEPSIS, PNEUMONIA, HYPEROSMOLAR DIABETIC, GIOVANNA Physical Exam Vital Signs: Temp Pulse Resp BP Pulse Ox 98.2 F 53 L 25 H 154/60 H 100 12/13/17 04:30 12/13/17 04:30 12/13/17 04:30 12/13/17 04:30 12/13/17 04:30 Intake & Output 12/11/17 12/12/17 12/13/17 07:59 07:59 07:59 Intake Total 253 1813 Output Total 130 Balance 253 1683 Weight 91 lb 14.924 oz 88 lb 10.013 oz General appearance: PRESENT: other - moaning Respiratory exam: PRESENT: clear to auscultation julisa Cardiovascular exam: PRESENT: irregular rhythm. ABSENT: diastolic murmur, systolic murmur GI/Abdominal exam: ABSENT: mass, organolmegaly Extremities exam: ABSENT: pedal edema Neurological exam: ABSENT: awake Results Laboratory Results: 12/13/17 00:49 Labs- Last Values WBC 27.8 10^3/uL (4.0-10.5) H 12/11/17 23:35 RBC 4.37 10^6/uL (3.72-5.28) 12/11/17 23:35 Hgb 11.3 g/dL (12.0-15.5) L 12/11/17 23:35 Hct 39.6 % (36.0-47.0) 12/11/17 23:35 MCV 91 fl (80-97) 12/11/17 23:35 MCH 25.8 pg (27.0-33.4) L 12/11/17 23:35 MCHC 28.5 g/dL (32.0-36.0) L 12/11/17 23:35 RDW 18.7 % (11.5-14.0) H 12/11/17 23:35 Plt Count 224 10^3/uL (150-450) 12/11/17 23:35 Total Counted 100 12/11/17 23:35 Seg Neutrophils % Not Reportable 12/11/17 23:35 Seg Neuts % (Manual) 96 % (42-78) H 12/11/17 23:35 Lymphocytes % Not Reportable 12/11/17 23:35 Lymphocytes % (Manual) 1 % (13-45) L 12/11/17 23:35 Monocytes % Not Reportable 12/11/17 23:35 Monocytes % (Manual) 3 % (3-13) 12/11/17 23:35 Eosinophils % Not Reportable 12/11/17 23:35 Eosinophils % (Manual) 0 % (0-6) 12/11/17 23:35 Basophils % Not Reportable 12/11/17 23:35 Basophils % (Manual) 0 % (0-2) 12/11/17 23:35 Absolute Neutrophils Not Reportable 12/11/17 23:35 Abs Neuts (Manual) 26.7 10^3/uL (1.7-8.2) H 12/11/17 23:35 Absolute Lymphocytes Not Reportable 12/11/17 23:35 Abs Lymphs (Manual) 0.3 10^3/uL (0.5-4.7) L 12/11/17 23:35 Absolute Monocytes Not Reportable 12/11/17 23:35 Abs Monocytes (Manual) 0.8 10^3/uL (0.1-1.4) 12/11/17 23:35 Absolute Eosinophils Not Reportable 12/11/17 23:35 Absolute Eos (Manual) 0.0 10^3/uL (0.0-0.6) 12/11/17 23:35 Absolute Basophils Not Reportable 12/11/17 23:35 Abs Basophils (Manual) 0.0 10^3/uL (0.0-0.2) 12/11/17 23:35 Toxic Granulation 1+ 12/11/17 23:35 Platelet Estimate Cancelled 12/11/17 22:38 Large Platelets PRESENT 12/11/17 23:35 Platelet Comment ADEQUATE 12/11/17 23:35 Polychromasia SLIGHT 12/11/17 23:35 Poikilocytosis 1+ 12/11/17 23:35 Anisocytosis 2+ 12/11/17 23:35 Tear Drop Cells SLIGHT 12/11/17 23:35 Ovalocytes 1+ 12/11/17 23:35 Acanthocytes (Spur) 1+ 12/11/17 23:35 Schistocytes 1+ 12/11/17 23:35 PT 15.9 SEC (11.4-15.4) H 12/11/17 22:38 INR 1.21 12/11/17 22:38 VBG pH 7.32 (7.30-7.42) 12/11/17 23:35 VBG pCO2 50.8 mmHg (35-63) 12/11/17 23:35 VBG HCO3 25.6 mmol/L (20-32) 12/11/17 23:35 VBG Base Excess -1.2 mmol/L 12/11/17 23:35 Sodium 158.3 mmol/L (137-145) H 12/13/17 00:49 Potassium 3.8 mmol/L (3.6-5.0) 12/13/17 00:49 Chloride 120 mmol/L (98-107) H 12/13/17 00:49 Carbon Dioxide 21 mmol/L (22-30) L 12/13/17 00:49 Anion Gap 17 (5-19) 12/13/17 00:49 BUN 127 mg/dL (7-20) H 12/13/17 00:49 Creatinine 3.43 mg/dL (0.52-1.25) H 12/13/17 00:49 Est GFR ( Amer) 15 (>60) L 12/13/17 00:49 Est GFR (Non-Af Amer) 13 (>60) L 12/13/17 00:49 Glucose 75 mg/dL (75-110) 12/13/17 00:49 POC Glucose 163 mg/dL (70-110) H 12/13/17 06:00 Hemoglobin A1c % 8.7 % (4.7-6.0) H 12/11/17 22:38 Lactic Acid 4.1 mmol/L (0.7-2.1) H 12/12/17 04:09 Calcium 8.3 mg/dL (8.4-10.2) L 12/13/17 00:49 Total Bilirubin 1.2 mg/dL (0.2-1.3) 12/11/17 22:38 Direct Bilirubin 0.9 mg/dL (0.0-0.4) H 12/11/17 22:38 Neonat Total Bilirubin Not Reportable 12/11/17 22:38 Neonat Direct Bilirubin Not Reportable 12/11/17 22:38 Neonat Indirect Bili Not Reportable 12/11/17 22:38 AST 30 U/L (14-36) 12/11/17 22:38 ALT 43 U/L (9-52) 12/11/17 22:38 Alkaline Phosphatase 159 U/L (38-126) H 12/11/17 22:38 Total Protein 5.3 g/dL (6.3-8.2) L 12/11/17 22:38 Albumin 2.7 g/dL (3.5-5.0) L 12/11/17 22:38 Urine Color [place] 12/12/17 14:00 Urine Appearance CLOUDY 12/12/17 14:00 Urine pH 5.0 (5.0-9.0) 12/12/17 14:00 Ur Specific [place] 1.017 12/12/17 14:00 Urine Protein 100 mg/dL (NEGATIVE) H 12/12/17 14:00 Urine Glucose (UA) 50 mg/dL (NEGATIVE) H 12/12/17 14:00 Urine Ketones TRACE mg/dL (NEGATIVE) H 12/12/17 14:00 Urine Blood LARGE (NEGATIVE) H 12/12/17 14:00 Urine Nitrite NEGATIVE (NEGATIVE) 12/12/17 14:00 Urine Bilirubin NEGATIVE (NEGATIVE) 12/12/17 14:00 Urine Urobilinogen NEGATIVE mg/dL (<2.0) 12/12/17 14:00 Ur Leukocyte Esterase LARGE (NEGATIVE) H 12/12/17 14:00 Urine WBC (Auto) >182 /HPF 12/12/17 14:00 Urine RBC (Auto) 65 /HPF 12/12/17 14:00 U Hyaline Cast (Auto) 2 /LPF 12/12/17 14:00 Urine Bacteria (Auto) 3+ /HPF 12/12/17 14:00 Urine WBC Clumps FEW /HPF 12/12/17 14:00 Squamous Epi Cells Auto 1 /HPF 12/12/17 14:00 Urine Mucus (Auto) RARE /LPF 12/12/17 14:00 Urine Ascorbic Acid NEGATIVE (NEGATIVE) 12/12/17 14:00 Slides for Path Review Cancelled 12/11/17 22:38 Impressions: Chest X-Ray 12/11/17 22:15 IMPRESSION: Stable radiographic appearance. Similar left basilar airspace disease -effusion and cardiomegaly. Assessment & Plan - Diagnosis (1) Sepsis associated hypotension Is this a current diagnosis for this admission?: Yes Plan: bp better. Pyuria. Cultures pending. (2) Aspiration pneumonia Qualifiers: Aspiration pneumonia type: due to gastric secretions Laterality: left Lung location: lower lobe of lung Qualified Code(s): J69.0 - Pneumonitis due to inhalation of food and vomit Is this a current diagnosis for this admission?: Yes Plan: doubt (3) Acute kidney failure with tubular necrosis Is this a current diagnosis for this admission?: Yes Plan: oliguria. IV slowed (4) Type 2 diabetes mellitus with diabetic chronic kidney disease Qualifiers: Chronic kidney disease stage: stage 3 (moderate) Is this a current diagnosis for this admission?: Yes Plan: finished drip. Now sliding scale (5) Hemorrhage of pars basalis of bao Is this a current diagnosis for this admission?: Yes (6) Vascular dementia without behavioral disturbance Is this a current diagnosis for this admission?: Yes (7) Central retinal artery occlusion of right eye Is this a current diagnosis for this admission?: Yes (8) Essential (primary) hypertension Is this a current diagnosis for this admission?: Yes (9) Chronic atrial fibrillation Is this a current diagnosis for this admission?: Yes (10) Ventricular tachycardia Is this a current diagnosis for this admission?: Yes (11) Gastro-esophageal reflux disease without esophagitis Is this a current diagnosis for this admission?: Yes (12) Anoxic brain damage Is this a current diagnosis for this admission?: Yes Plan: coma deeper than metabolic encephalopathy. Prognosis grim. - Inpatient Certification Medical Necessity: Significant Comorbidiites Make Outpatient Treatment Too Risky , Need Close Monitoring Due to Risk of Patient Decompensation, Need For IV Fluids, Need For Continuous Telemetry Monitoring, Need for IV Antibiotics, Risk of Complication if Not Cared For in Hospital, Risk of Diagnosis Which Will Require Inpatient Eval/Care/Monitoring
[2017-12-13] MEDS: FAMOTIDINE INJ/PF 20 MG/2 ML SDV IV SCH (10:39)
[2017-12-13] MEDS: DEXTROSE 5%-WATER 1000 ML 1,000 ML IV PRN (11:34)
[2017-12-13] MEDS: CEFTRIAXONE SODIUM 1,000 MG in DEXTROSE 5%-WATER 50 ML IV SCH (21:38)
[2017-12-14] MEDS: INSULIN REG, HUMAN 100 UNIT/ML 3 ML VIAL (PYX) SUBCUT SCH ×4 (00:13→17:43)
[2017-12-14] MEDS: DEXTROSE 5%-WATER 1000 ML 1,000 ML IV PRN (08:29)
--- NOTE | 2017-12-14 10:49 | PDOC PROGRESS REPORT ---
Subjective Progress Note for:: 12/14/17 Subjective:: stupor. No words. Occasional mumble. Moved hands. Reason For Visit: SEPSIS, PNEUMONIA, HYPEROSMOLAR DIABETIC, GIOVANNA Physical Exam Vital Signs: Temp Pulse Resp BP Pulse Ox 97.8 F 98 23 H 151/86 H 100 12/14/17 08:31 12/14/17 08:31 12/14/17 09:31 12/14/17 08:31 12/14/17 09:31 Intake & Output 12/13/17 12/14/17 12/15/17 07:59 07:59 07:59 Intake Total 1813 1058 Output Total 130 180 Balance 1683 878 Weight 88 lb 10.013 oz 97 lb 0.054 oz General appearance: PRESENT: no acute distress Respiratory exam: PRESENT: clear to auscultation julisa Cardiovascular exam: ABSENT: diastolic murmur, irregular rhythm, systolic murmur GI/Abdominal exam: ABSENT: mass, organolmegaly, tenderness Extremities exam: ABSENT: pedal edema Neurological exam: ABSENT: alert - no response to pain now Results Laboratory Results: 12/13/17 00:49 12/12/17 14:00 Pinedo Catheter Urine Culture - Final Escherichia Coli Abnormal - 24 hr 12/13/17 12/13/17 12/14/17 11:26 16:03 00:10 POC Glucose 222 H 230 H 265 H 12/14/17 05:28 POC Glucose 197 H Impressions: Chest X-Ray 12/11/17 22:15 IMPRESSION: Stable radiographic appearance. Similar left basilar airspace disease -effusion and cardiomegaly. Assessment & Plan - Diagnosis (1) Sepsis associated hypotension Is this a current diagnosis for this admission?: Yes Plan: 100k Ecoli resistant only augmentin. (2) Aspiration pneumonia Qualifiers: Aspiration pneumonia type: due to gastric secretions Laterality: left Lung location: lower lobe of lung Qualified Code(s): J69.0 - Pneumonitis due to inhalation of food and vomit Is this a current diagnosis for this admission?: Yes Plan: still requiring bipap. (3) Acute kidney failure with tubular necrosis Is this a current diagnosis for this admission?: Yes Plan: creatinine no better. Oliguric. (4) Type 2 diabetes mellitus with diabetic chronic kidney disease Qualifiers: Chronic kidney disease stage: stage 3 (moderate) Is this a current diagnosis for this admission?: Yes (5) Hemorrhage of pars basalis of bao Is this a current diagnosis for this admission?: Yes (6) Vascular dementia without behavioral disturbance Is this a current diagnosis for this admission?: Yes (7) Central retinal artery occlusion of right eye Is this a current diagnosis for this admission?: Yes (8) Essential (primary) hypertension Is this a current diagnosis for this admission?: Yes (9) Chronic atrial fibrillation Is this a current diagnosis for this admission?: Yes (10) Ventricular tachycardia Is this a current diagnosis for this admission?: Yes (11) Gastro-esophageal reflux disease without esophagitis Is this a current diagnosis for this admission?: Yes (12) Anoxic brain damage Is this a current diagnosis for this admission?: Yes Plan: prognosis grim. Daughter not ready for just comfort measures. Grand daughter is. - Inpatient Certification Medical Necessity: Significant Comorbidiites Make Outpatient Treatment Too Risky , Need Close Monitoring Due to Risk of Patient Decompensation, Need For IV Fluids, Need For Continuous Telemetry Monitoring, Need for IV Antibiotics, Risk of Complication if Not Cared For in Hospital, Risk of Diagnosis Which Will Require Inpatient Eval/Care/Monitoring
[2017-12-14] MEDS: FAMOTIDINE INJ/PF 20 MG/2 ML SDV IV SCH (12:08)
[2017-12-14] MEDS ORDERED: LIDOCAINE HCL 1% INJ (FOR 1 GM VIAL) INJ SCH (22:00)
[2017-12-14] MEDS ORDERED: CEFTRIAXONE INJ 1000 MG VIAL IM SCH (22:00)
[2017-12-15] MEDS: INSULIN REG, HUMAN 100 UNIT/ML 3 ML VIAL (PYX) SUBCUT SCH ×2 (01:15→07:57)
--- NOTE | 2017-12-15 08:11 | PDOC PROGRESS REPORT ---
Subjective Progress Note for:: 12/15/17 Subjective:: opens eyes a little Reason For Visit: SEPSIS, PNEUMONIA, HYPEROSMOLAR DIABETIC, GIOVANNA Physical Exam Vital Signs: Temp Pulse Resp BP Pulse Ox 98.1 F 49 L 32 H 135/67 H 100 12/15/17 05:09 12/15/17 05:09 12/15/17 05:09 12/15/17 05:09 12/15/17 05:09 Intake & Output 12/14/17 12/15/17 12/16/17 07:59 07:59 07:59 Intake Total 1058 158 Output Total 180 225 Balance 878 -67 Weight 97 lb 0.054 oz 98 lb 12.273 oz General appearance: PRESENT: no acute distress Respiratory exam: PRESENT: clear to auscultation julisa Cardiovascular exam: ABSENT: diastolic murmur, irregular rhythm, systolic murmur GI/Abdominal exam: ABSENT: mass, organolmegaly, tenderness Extremities exam: ABSENT: pedal edema Neurological exam: ABSENT: alert Results Laboratory Results: 12/13/17 00:49 12/12/17 14:00 Pinedo Catheter Urine Culture - Final Escherichia Coli Abnormal - 24 hr 12/14/17 12/14/17 12/14/17 05:28 11:47 17:30 POC Glucose 197 H 209 H 306 H 12/15/17 12/15/17 00:34 05:27 POC Glucose 222 H 230 H Impressions: Chest X-Ray 12/11/17 22:15 IMPRESSION: Stable radiographic appearance. Similar left basilar airspace disease -effusion and cardiomegaly. Assessment & Plan - Diagnosis (1) Anoxic brain damage Is this a current diagnosis for this admission?: Yes Plan: not improving. Daughter wants comfort measures including stopping bipap and antibiotic. (2) Acute cystitis without hematuria Is this a current diagnosis for this admission?: Yes Plan: 100k Ecoli sensitive except augmentin. (3) Sepsis associated hypotension Is this a current diagnosis for this admission?: Yes (4) Aspiration pneumonia Qualifiers: Aspiration pneumonia type: due to gastric secretions Laterality: left Lung location: lower lobe of lung Qualified Code(s): J69.0 - Pneumonitis due to inhalation of food and vomit Is this a current diagnosis for this admission?: Yes (5) Acute kidney failure with tubular necrosis Is this a current diagnosis for this admission?: Yes Plan: still oliguric. Last cr3.4. (6) Type 2 diabetes mellitus with diabetic chronic kidney disease Qualifiers: Chronic kidney disease stage: stage 3 (moderate) Is this a current diagnosis for this admission?: Yes (7) Hemorrhage of pars basalis of bao Is this a current diagnosis for this admission?: Yes (8) Vascular dementia without behavioral disturbance Is this a current diagnosis for this admission?: Yes (9) Central retinal artery occlusion of right eye Is this a current diagnosis for this admission?: Yes (10) Essential (primary) hypertension Is this a current diagnosis for this admission?: Yes (11) Chronic atrial fibrillation Is this a current diagnosis for this admission?: Yes (12) Ventricular tachycardia Is this a current diagnosis for this admission?: Yes (13) Gastro-esophageal reflux disease without esophagitis Is this a current diagnosis for this admission?: Yes - Inpatient Certification Medical Necessity: Significant Comorbidiites Make Outpatient Treatment Too Risky , Need Close Monitoring Due to Risk of Patient Decompensation, Need for Pain Control, Risk of Complication if Not Cared For in Hospital, Risk of Diagnosis Which Will Require Inpatient Eval/Care/Monitoring
[2017-12-15 09:26] VITALS: BP 153/71
[2017-12-15] MEDS: MORPHINE SULFATE 10 MG/ML INJ SUBCUT PRN ×8 (09:43→15:51)
[2017-12-15] MEDS ORDERED: ATROPINE SULFATE 1% OPH SOLN 5 ML BOTTLE SL PRN (15:01)
--- NOTE | 2017-12-16 07:18 | Death Summary ---
Summary Date : 12/15/17 Time of :: 14:12 Resuscitation Status: Comfort Measures Only Primary Care Provider: darrion - Final Diagnosis (1) Anoxic brain damage Is this a current diagnosis for this admission?: Yes (2) Acute cystitis without hematuria Is this a current diagnosis for this admission?: Yes (3) Sepsis associated hypotension Is this a current diagnosis for this admission?: Yes (4) Aspiration pneumonia Is this a current diagnosis for this admission?: Yes (5) Acute kidney failure with tubular necrosis Is this a current diagnosis for this admission?: Yes (6) Type 2 diabetes mellitus with diabetic chronic kidney disease Is this a current diagnosis for this admission?: Yes (7) Hemorrhage of pars basalis of bao Is this a current diagnosis for this admission?: Yes (8) Vascular dementia without behavioral disturbance Is this a current diagnosis for this admission?: Yes (9) Central retinal artery occlusion of right eye Is this a current diagnosis for this admission?: Yes (10) Essential (primary) hypertension Is this a current diagnosis for this admission?: Yes (11) Chronic atrial fibrillation Is this a current diagnosis for this admission?: Yes (12) Ventricular tachycardia Is this a current diagnosis for this admission?: Yes (13) Gastro-esophageal reflux disease without esophagitis Is this a current diagnosis for this admission?: Yes Hospital Course:: As expected her brain respiratory and renal functions did no improve inspite of bipap ivf antibiotic insulin. Hyperosmolar resolved on drip. Family requested bipap be stopped. She a few hours later.
== END 2017-12-15 16:50 | DRG 871 ==
LOC: ER 22:09 → EH 23:48 → 3N 12-12 03:38 → 3S 12-13 17:10
PROVIDERS: ADMIT Family Medicine; ATTEND Family Medicine
PROC: 5A09457 Assistance with Respiratory Ventilation, 24-96 Consecutive Hours, Continuous Positive Airway Pressure (ICD-10-PCS; principal; 2017-12-11)
DX: A41.9 Sepsis, unspecified organism (principal); E11.00 Type 2 diabetes mellitus with hyperosmolarity without nonketotic hyperglycemic-hyperosmolar coma (NKHHC); J69.0 Pneumonitis due to inhalation of food and vomit; N17.0 Acute kidney failure with tubular necrosis; I61.3 Nontraumatic intracerebral hemorrhage in brain stem; G93.1 Anoxic brain damage, not elsewhere classified; N30.00 Acute cystitis without hematuria; H34.11 Central retinal artery occlusion, right eye; I47.2 Ventricular tachycardia; Z66 Do not resuscitate; E11.22 Type 2 diabetes mellitus with diabetic chronic kidney disease; F01.50 Vascular dementia, unspecified severity, without behavioral disturbance, psychotic disturbance, mood disturbance, and anxiety; N18.3 Chronic kidney disease, stage 3 (moderate); I12.9 Hypertensive chronic kidney disease with stage 1 through stage 4 chronic kidney disease, or unspecified chronic kidney disease; I50.9 Heart failure, unspecified; I48.2 Chronic atrial fibrillation; K21.9 Gastro-esophageal reflux disease without esophagitis; E78.00 Pure hypercholesterolemia, unspecified; M19.90 Unspecified osteoarthritis, unspecified site; F32.9 Major depressive disorder, single episode, unspecified; D63.1 Anemia in chronic kidney disease; Z16.11 Resistance to penicillins; B96.20 Unspecified Escherichia coli [E. coli] as the cause of diseases classified elsewhere; Z86.73 Personal history of transient ischemic attack (TIA), and cerebral infarction without residual deficits; Z82.49 Family history of ischemic heart disease and other diseases of the circulatory system
CPT/HCPCS: 36415; 71045; 80048; 80053; 81001; 82803; 82962; 83036; 83605; 85025; 85610; 87040; 87086; 87088; 87186; 93005; 93010; 94660; 96374; 96375; 99291; J0696; J1815; J2060; J2270; J3490; J7030; J7060; S0028